=== PATIENT | male | born 1935 | race Caucasian/White ===

== ENCOUNTER 2022-04-06 05:18 | Inpatient (IN) | payer MEDICARE, MEDICAID ==
[~2022-04-06] VITALS: Ht 177.8 cm; Wt 81.2 kg
[2022-04-06 05:21] VITALS: BP_SYST 132
--- NOTE | 2022-04-06 05:28 | NUR ---
SON, JOSÉ LUIS MARES [phone] SPOKE TO SON, AND SON IS GETTING ON AIRPLANE COMING TO [place] FROM [place] AT 0600. CAN REACH HIM PRIOR TO THAT OR AFTER 1430 THIS AFTERNOON. TRIPLE BYPASS ON PATIENT WAS 16 YEARS AGO. PATIENT HAS [employer] [employer] PER SON.
--- NOTE | 2022-04-06 05:38 | NUR ---
Placed in room 6 . Placed on satellite project site monitor, blood pressure machine and pulse oximeter. To gown for exam. Side rails up.
--- NOTE | 2022-04-06 05:38 | NUR ---
Pt BIBA C/O chest pain and back pain EKG done Pt resting comfortably at bed VSS Verbally responsive Able to make needs known Will continue to monitor
--- NOTE | 2022-04-06 05:41 | NUR ---
Aspirin given in route 324mg
--- NOTE | 2022-04-06 05:48 | NUR ---
Dr. Lau at bedside with patient for evaluation.
[2022-04-06] MEDS ORDERED: ASPIRIN 325 MG TABLET (ECOTRIN) PO ONE (06:15)
--- NOTE | 2022-04-06 06:15 | NUR ---
Per Dr. Lau, DC aspirin as he received a dose en route
[2022-04-06] MEDS ORDERED: OXYCODONE/ACETAMINOPHEN *10*mg/325 mg TABLET PO ONE (06:30)
[2022-04-06 06:39] LABS: BASOPHILS % (AUTO) 0.5 % (0.0-2.0); EOSINOPHILS # (AUTO) 0.1 K/uL (0.0-0.4); EOSINOPHILS % (AUTO) 0.9 % (0.0-4.0); HEMATOCRIT 30.5 % (36-54); HEMOGLOBIN 10.4 g/dL (14.0-18.0); LYMPHOCYTES # (AUTO) 1.2 K/uL (1.0-5.5); LYMPHOCYTES % (AUTO) 15.2 % (20.5-51.5); MEAN CORPUSCULAR HEMOGLOBIN 31 pg (27-31); MEAN CORPUSCULAR HGB CONC 34 % (32-36); MEAN CORPUSCULAR VOLUME 92 fL (79.0-98.0); MONOCYTES # (AUTO) 0.6 K/uL (0.0-1.0); MONOCYTES % (AUTO) 7.7 % (1.7-9.3); NEUTROPHILS # (AUTO) 6.1 K/uL (1.8-7.7); NEUTROPHILS % (AUTO) 75.7 % (40.0-70.0); PLATELET COUNT (AUTO) 193 K/uL (130-430); RED BLOOD CELL COUNT(AUTO) 3.33 MIL/uL (4.2-6.2); RED CELL DISTRIBUTION WIDTH 15.5 % (9.0-15.0)
[2022-04-06 06:48] LABS: ANION GAP 3 (5-15); CALCIUM 7.5 mg/dL (8.4-11.0); CHLORIDE 107 mmol/L (98-107); CREATININE 0.77 mg/dL (0.55-1.30); GLUCOSE 100 mg/dL (70-99); POTASSIUM 4.1 mmol/L (3.5-5.1); SODIUM SERUM 139 mmol/L (136-145); UREA NITROGEN, BLOOD 16 mg/dL (8-21)
[2022-04-06 06:56] LABS: ALANINE AMINOTRANSFERASE 23 U/L (12-78); ALBUMIN 2.7 g/dL (3.4-4.8); ASPARTATE AMINOTRANSFERASE 20 U/L (10-37); TOTAL BILIRUBIN 0.5 mg/dL (0.0-1.0)
--- NOTE | 2022-04-06 07:08 | NUR ---
Gave report to Flaquita
--- NOTE | 2022-04-06 07:08 | NUR ---
REPORT RECEIVED FROM ANNAMARIE JERONIMO FOR CONTINUING CARE
--- NOTE | 2022-04-06 08:00 | NUR ---
PT TURNED FOR COMFORT, REPORTS POSITIONAL PAIN TO LOWER BACK. STATES RELIEF WITH REPOSITION
--- NOTE | 2022-04-06 09:39 | NUR ---
COVID SWAB DONE AND SENT TO LAB
[2022-04-06] MEDS ORDERED: IBUPROFEN 800 MG TABLET PO ONE (10:45)
--- NOTE | 2022-04-06 11:00 | NUR ---
PT TURNED FOR COMFORT TO RIGHT SIDE. REPORTS RELIEF FROM DISCOMFORT
[2022-04-06] MEDS ORDERED: MORPHINE 2 MG/ML INJ. SYRINGE IVP PRN (12:45)
[2022-04-06] MEDS ORDERED: ONDANSETRON HCL 4 MG/2 ML VIAL IVP PRN (12:45)
[2022-04-06] MEDS ORDERED: HYDROcodone/ACETAMIN 5-325 MG TAB (NORCO/ VICODIN) PO PRN (12:45)
--- NOTE | 2022-04-06 13:14 | NUR ---
Admit bed requested Patient will be admitted to care of . Admitted to TELE unit. Diagnosis CHEST PAIN Inpatient (Yes or No) YES Observation (Yes or No) NO Orientation concerns or request close to nursing station (Yes or No) NO Covid Status NEGATIVE On vent or bipap NO Isolation requirements NO Needs a sitter NO From Home (Yes or if No enter name of facility) [facility] Requires Dialysis (Yes or No) NO Med Rec Completed (Yes of No) YES
[2022-04-06] MEDS ORDERED: ACET325T53 PO (13:20)
[2022-04-06] MEDS ORDERED: ASA81 PO (13:20)
[2022-04-06] MEDS ORDERED: POTA20PA30 PO (13:20)
[2022-04-06] MEDS ORDERED: CLOP75TA32 PO (13:20)
[2022-04-06] MEDS ORDERED: ISOS60TA71 PO (13:20)
[2022-04-06] MEDS ORDERED: ATEN-41 PO (13:20)
[2022-04-06] MEDS ORDERED: NITSL SL (13:20)
[2022-04-06] MEDS ORDERED: LIP40 PO (13:20)
[2022-04-06] MEDS ORDERED: LISI10TA29 PO (13:20)
[2022-04-06] MEDS ORDERED: POLY17PO4 PO (13:20)
--- NOTE | 2022-04-06 13:20 | NUR ---
Medication reconciliation completed with information provided by [facility]. Any prior medication reconciliation on file was reviewed and corrected.
[2022-04-06] MEDS ORDERED: NITROGLYCERIN 0.4 MG TAB.SUBL SL PRN (14:30)
[2022-04-06] MEDS ORDERED: POLYETHYLENE GLYCOL 3350, 17 GM/ POWD.PACK PO PRN (14:30)
--- NOTE | 2022-04-06 14:30 | NUR ---
Patient admitted to care of Dr. Doherty. Admitted to Tele unit. Will go to room 106A. Belongings list completed. Complete and up to date summary report printed. SBAR report given at bedside to ANNAMARIE Kendall with opportunity for questions.
--- NOTE | 2022-04-06 16:03 | NUR ---
CONSULTATION PAGED REASON FOR CONSULTATION:CHEST PAIN WAS CONSULT CALLED?Y -PERSON WHO WAS NOTIFIED:JESU CONSULTING PHYSICIAN:BUCK JASSO FORENSIC TOXICOLOGIST SPECIALTY:CARDIO FORENSIC TOXICOLOGIST PHONE NUMBER:[phone] REQUESTING PHYSICIAN:
[2022-04-06 16:18] VITALS: BP_SYST 105
[2022-04-06 19:40] VITALS: BP_SYST 142
--- NOTE | 2022-04-06 19:40 | NUR ---
ROUNDS; -Pt is a/ox2-3, awakes,laying in bed comfortably, CHICKALOON noted. Pt denies any chest pain,pain,sob,or any acute distress. IV site of LFA #20 patent no s/s any infiltration after flushed w/ NS. Bed alarmed, side rails x3,call light w/in reach. Discussed poc,all safety measures, not to get OOB w/out using call light for assistance, pt verbalized understanding and pt is able to use call light with good return demonstration. Cont to monitor pt.
--- NOTE | 2022-04-06 19:40 | NUR ---
CORRECTION-IT'S PM ASSESSMENT NOT ROUNDS;
[2022-04-06] MEDS: ACETAMINOPHEN 325 MG TABLET PO PRN (20:54)
--- NOTE | 2022-04-06 20:54 | NUR ---
NOTES PAIN MGMT -Pt is c/o sacrum pain 12/18,gave Tylenol po for pain mgmt. Will reassess pain level w/in an hour. Cont to monitor pt.
[2022-04-06] MEDS ORDERED: ATENOLOL 25 MG TABLET(TENORMIN) PO SCH (21:00)
[2022-04-06 21:08] LABS: CHOLESTEROL 134 mg/dL (<200); HDL CHOLESTEROL 44 mg/dL (>45); LDL CHOLESTEROL 81 mg/dL (<100); TRIGLYCERIDES 56 mg/dL (30-150)
--- NOTE | 2022-04-06 21:54 | NUR ---
ROUNDS; -Pt is laying in bed. Pt denies any pain or any acute distress. All safety measures in place. Bed alarmed. call light w/in reach. Cont to monitor pt.
[2022-04-07] VITALS (8 sets, daily range): BP systolic 110–138
--- NOTE | 2022-04-07 01:19 | NUR ---
ROUNDS; -Pt is asleep. No s/s any pain or any acute distress noted. All safety measures in place. Bed alarmed. call light w/in reach. Cont to monitor pt.
--- NOTE | 2022-04-07 03:20 | NUR ---
ROUNDS; -Pt is still asleep. No s/s any pain or any acute distress noted. All safety measures in place. Bed alarmed. call light w/in reach. Cont to monitor p
[2022-04-07 06:20] LABS: BASOPHILS % (AUTO) 0.3 % (0.0-2.0); EOSINOPHILS # (AUTO) 0.1 K/uL (0.0-0.4); EOSINOPHILS % (AUTO) 0.9 % (0.0-4.0); HEMATOCRIT 32.6 % (36-54); HEMOGLOBIN 11.2 g/dL (14.0-18.0); LYMPHOCYTES # (AUTO) 1.2 K/uL (1.0-5.5); MEAN CORPUSCULAR HEMOGLOBIN 31 pg (27-31); MEAN CORPUSCULAR HGB CONC 34 % (32-36); MEAN CORPUSCULAR VOLUME 91 fL (79.0-98.0); MONOCYTES # (AUTO) 0.6 K/uL (0.0-1.0); MONOCYTES % (AUTO) 7.2 % (1.7-9.3); NEUTROPHILS # (AUTO) 6.2 K/uL (1.8-7.7); NEUTROPHILS % (AUTO) 76.6 % (40.0-70.0); PLATELET COUNT (AUTO) 195 K/uL (130-430); RED BLOOD CELL COUNT(AUTO) 3.59 MIL/uL (4.2-6.2); RED CELL DISTRIBUTION WIDTH 15.4 % (9.0-15.0); WHITE BLOOD COUNT (AUTO) 8.1 K/uL (4.8-10.8)
[2022-04-07 06:32] LABS: ANION GAP 6 (5-15); CALCIUM 8.3 mg/dL (8.4-11.0); CHLORIDE 103 mmol/L (98-107); CREATININE 0.67 mg/dL (0.55-1.30); GLUCOSE 100 mg/dL (70-99); PHOSPHORUS 3.5 mg/dL (2.7-4.5); POTASSIUM 3.8 mmol/L (3.5-5.1); SODIUM SERUM 136 mmol/L (136-145); UREA NITROGEN, BLOOD 16 mg/dL (8-21)
--- NOTE | 2022-04-07 06:39 | NUR ---
CLOSING NOTES; -Pt is laying in bed comfortably, MODOC noted. No s/s any chest pain,pain,sob,or any acute distress noted. IV site of LFA #20 patent no s/s any infiltration after flushed w/ NS. Bed alarmed, side rails x3,call light w/in reach. Pt's condition stable. Will endorse to next nurse to cont care.
--- NOTE | 2022-04-07 08:00 | NUR ---
RECEIVED PATIENT IN BED RESTING COMFORTABLY. AAOX4, PRESENTS CALM AND COOPERATIVE, ABLE TO TO EXPRESS NEEDS. PATIENT SHOWS NO SIGNS OF PAIN OR DISCOMFORT. RESPIRATIONS ARE NON LABORED. SKIN IS WARM AND DRY TO TOUCH. IV ACCESS IS PATENT, DRY, AND SECURE, NO SIGNS OF REDNESS OR SWELLING OBSERVED. BED IS LOCKED AND LOWEST POSITION , CALL LIGHT WITHIN REACH. NURSE WILL MONITOR AND CONTINUE WITH CARE.
[2022-04-07] MEDS ORDERED: ATORVASTATIN 20 MG TABLET PO SCH (09:00)
[2022-04-07] MEDS ORDERED: ISOSORBIDE MONONITRATE 30 MG TAB.ER.24H PO SCH (09:00)
[2022-04-07] MEDS ORDERED: POTASSIUM CHLORIDE 20 MEQ/PKT PACKET PO SCH (09:00)
[2022-04-07] MEDS ORDERED: ASPIRIN 81 MG TAB.CHEW PO SCH ×2 (09:00)
[2022-04-07] MEDS ORDERED: LISINOPRIL 10 MG TABLET (PRINIVIL) PO SCH (09:00)
[2022-04-07] MEDS ORDERED: CLOPIDOGREL BISULFATE 75 MG TABLET PO SCH (09:00)
[2022-04-07] MEDS: ACETAMINOPHEN 325 MG TABLET PO PRN (10:52)
--- NOTE | 2022-04-07 13:37 | NUR ---
SPOKE WITH SON. PATIENT WILL BE DISCHARGED AT 1730 BY TRANSPORTATION WITH [facility]. SON WILL ARRANGE INFORMATION DEVELOPER.
--- NOTE | 2022-04-07 14:06 | NUR ---
INFORMED ANNAMARIE CANCHOLA THAT PT IS OFF MONITOR. INFORMED RN TWICE.
--- NOTE | 2022-04-22 14:21 | NUR ---
Can Inspector MINE CAPTAIN made a Post Discharge Follow-Up Phone Call to former pt. Lolita who resides at [facility], an assisted living. Caryn Bolden stated he is at the Memory Care part of the facility and that [facility] is sending a PT who comes to check on Lolita and that he did have both follow up apts. with his PCP and Cardioligist.
== END 2022-04-07 18:05 | disposition home or self-care (01) | DRG 313 ==
LOC: SED 05:18 → STU 12:44
PROVIDERS: ADMIT Student in an Organized Health Care Education/Training Program; ATTEND Student in an Organized Health Care Education/Training Program
DX: R07.89 Other chest pain (principal); E44.0 Moderate protein-calorie malnutrition; I10 Essential (primary) hypertension; G89.29 Other chronic pain; I25.10 Atherosclerotic heart disease of native coronary artery without angina pectoris; M19.90 Unspecified osteoarthritis, unspecified site; Z20.822 Contact with and (suspected) exposure to COVID-19; E78.5 Hyperlipidemia, unspecified; E88.09 Other disorders of plasma-protein metabolism, not elsewhere classified; D64.9 Anemia, unspecified; F03.90 Unspecified dementia, unspecified severity, without behavioral disturbance, psychotic disturbance, mood disturbance, and anxiety; Z95.1 Presence of aortocoronary bypass graft
CPT/HCPCS: 36415; 71045; 80048; 80053; 80061; 83735; 83880; 84100; 84484; 85025; 86886; 86900; 86901; 93005; 93306; 99285; G0378

== ENCOUNTER 2022-05-31 23:04 | Inpatient (IN) | payer MEDICARE, MEDICAID ==
[~2022-05-31] VITALS: Ht 170.2 cm; Wt 84.4 kg
[~2022-05-31 23:04] MED LIST: ACET325T53 PO; ASA81 PO; ATEN-41 PO; CLOP75TA32 PO; ISOS60TA71 PO; LIP40 PO; LISI10TA29 PO; NITSL SL; POLY17PO4 PO; POTA20PA30 PO
[2022-05-31 23:09] VITALS: BP_SYST 135
--- NOTE | 2022-05-31 23:15 | NUR ---
RECEIVED PT BIB BLS TRANSPORT C/O RECTAL BLEED. PT DENIES ABD PAIN AT THIS TIME. DENIES N/V/D. PMh:HTN PT AAOX4, NO SOB NOTED AND NOT IN ANY DISTRESS AT THIS TIME.
--- NOTE | 2022-05-31 23:21 | NUR ---
Patient to ER bed 03 to gown for evaluation. Side rails up. Report given to ANNAMARIE PRETTY
[2022-06-01 00:25] LABS: BASOPHILS % (AUTO) 0.4 % (0.0-2.0); EOSINOPHILS # (AUTO) 0.1 K/uL (0.0-0.4); EOSINOPHILS % (AUTO) 0.6 % (0.0-4.0); HEMATOCRIT 27.3 % (36-54); HEMOGLOBIN 9.2 g/dL (14.0-18.0); LYMPHOCYTES # (AUTO) 1.2 K/uL (1.0-5.5); LYMPHOCYTES % (AUTO) 13.1 % (20.5-51.5); MEAN CORPUSCULAR HEMOGLOBIN 29 pg (27-31); MEAN CORPUSCULAR HGB CONC 34 % (32-36); MEAN CORPUSCULAR VOLUME 85 fL (79.0-98.0); MONOCYTES # (AUTO) 0.7 K/uL (0.0-1.0); MONOCYTES % (AUTO) 8.5 % (1.7-9.3); NEUTROPHILS # (AUTO) 6.8 K/uL (1.8-7.7); NEUTROPHILS % (AUTO) 77.4 % (40.0-70.0); PLATELET COUNT (AUTO) 307 K/uL (130-430); RED BLOOD CELL COUNT(AUTO) 3.22 MIL/uL (4.2-6.2); RED CELL DISTRIBUTION WIDTH 14.6 % (9.0-15.0); WHITE BLOOD COUNT (AUTO) 8.8 K/uL (4.8-10.8)
[2022-06-01 00:46] LABS: ANION GAP 5 (5-15); CALCIUM 8.6 mg/dL (8.4-11.0); CHLORIDE 103 mmol/L (98-107); CREATININE 0.87 mg/dL (0.55-1.30); GLUCOSE 109 mg/dL (70-99); POTASSIUM 4.3 mmol/L (3.5-5.1); SODIUM SERUM 139 mmol/L (136-145); UREA NITROGEN, BLOOD 17 mg/dL (8-21)
[2022-06-01 00:52] LABS: INR 1.2 (0.80-1.20); PROTHROMBIN TIME 12.3 SECS (9.5-12.5)
[2022-06-01 01:03] LABS: ALANINE AMINOTRANSFERASE 20 U/L (12-78); ASPARTATE AMINOTRANSFERASE 16 U/L (10-37); TOTAL BILIRUBIN 0.4 mg/dL (0.0-1.0)
--- NOTE | 2022-06-01 03:19 | NUR ---
PT HAD BLOOD CLOTS IN STOOL. ERMD NOTIFIED
[2022-06-01] MEDS ORDERED: PANTOPRAZOLE SODIUM 40 MG in NS 50 ML IV SCH (03:45)
[2022-06-01] MEDS ORDERED: PANTOPRAZOLE SODIUM 80 MG in NS 100 ML IV ONE (03:45)
[2022-06-01] MEDS ORDERED: NACL 0.9% 1,000 ML IV SCH (03:45)
[2022-06-01] MEDS ORDERED: PANTOPRAZOLE SODIUM 40 MG/VIAL (PROTONIX) ONE ×6 (03:56→13:18)
[2022-06-01 04:00] LABS: HEMATOCRIT 25.1 % (36-54); HEMOGLOBIN 8.7 g/dL (14.0-18.0)
--- NOTE | 2022-06-01 04:50 | NUR ---
PT ARRIVED ON UNIT PT WAS TRANSPORTED BY [facility] FROM ED. PT MOVED TO BED BY NURSES. NO APPARENT DISTRESS NOTED AT THIS TIME. IV FLUIDS RESUMED ORDERED. BED IS IN LOWEST POSITION WITH FALL AND SAFETY PRECAUTIONS IN PLACE. CALL LIGHT WITHIN REACH AND PT EDUCATED ON HOW TO USE IT
[2022-06-01 04:56] VITALS: BP_SYST 155
--- NOTE | 2022-06-01 05:06 | NUR ---
CONSULTATION PAGED/CALLED Reason for Consultation: gi bleed Person Who was Notified: DION Consulting Physician: DR. WONG Continuous Conveyor Screen Drier Specialty: GI Ordering Physician: DR. NUNEZ
--- NOTE | 2022-06-01 07:48 | NUR ---
SPOKE WITH GI DR WONG UPDATED DR ON PTS CONDITION. IS ON HIS WAY IN TO SEE PT
[2022-06-01 08:00] VITALS: BP_SYST 138
[2022-06-01 08:12] LABS: TOTAL IRON BIND. CAPACITY 276 ug/dL (250-450)
[2022-06-01] MEDS: D5LR 1,000 ML IV SCH ×2 (09:22→18:22)
[2022-06-01] MEDS: LISINOPRIL 10 MG TABLET (PRINIVIL) PO SCH (09:23)
[2022-06-01] MEDS: ISOSORBIDE MONONITRATE 30 MG TAB.ER.24H PO SCH (09:23)
--- NOTE | 2022-06-01 09:27 | NUR ---
NOTIFIED OF CONSULT DR. MILLER (DR. DENISSE WONG GRINDER OPERATOR EXTERNAL TOOL) REQUESTING PHY: REASON FOR CONSULT: GI BLEED DIALED: [phone] SPOKE TO: YEE
[2022-06-01] MEDS: ATORVASTATIN 20 MG TABLET PO SCH (09:31)
[2022-06-01] MEDS: PANTOPRAZOLE SODIUM 40 MG in NS 50 ML IV SCH ×4 (09:33→23:17)
[2022-06-01 10:47] LABS: BASOPHILS % (AUTO) 0.5 % (0.0-2.0); EOSINOPHILS # (AUTO) 0.1 K/uL (0.0-0.4); EOSINOPHILS % (AUTO) 0.6 % (0.0-4.0); HEMATOCRIT 25.1 % (36-54); HEMOGLOBIN 8.4 g/dL (14.0-18.0); LYMPHOCYTES # (AUTO) 1.2 K/uL (1.0-5.5); LYMPHOCYTES % (AUTO) 13.2 % (20.5-51.5); MEAN CORPUSCULAR HEMOGLOBIN 29 pg (27-31); MEAN CORPUSCULAR HGB CONC 33 % (32-36); MEAN CORPUSCULAR VOLUME 86 fL (79.0-98.0); MONOCYTES # (AUTO) 0.6 K/uL (0.0-1.0); MONOCYTES % (AUTO) 6.9 % (1.7-9.3); NEUTROPHILS % (AUTO) 78.8 % (40.0-70.0); PLATELET COUNT (AUTO) 283 K/uL (130-430); RED BLOOD CELL COUNT(AUTO) 2.93 MIL/uL (4.2-6.2); RED CELL DISTRIBUTION WIDTH 14.7 % (9.0-15.0); WHITE BLOOD COUNT (AUTO) 8.9 K/uL (4.8-10.8)
[2022-06-01 11:41] VITALS: BP_SYST 153
--- NOTE | 2022-06-01 12:15 | NUR ---
DISCHARGE PLANNING [facility] [employer]. Faxed updated pt info to [facility] [employer] along with my direct line, Dr Chris chaidez ph, direct nsg station number. Spoke with pt at bedside & states prefers to stay here does not want to transfer to [facility].
[2022-06-01 16:24] VITALS: BP_SYST 140
[2022-06-01] MEDS: SOD FERRIC GLUC COMPLEX/SUC 125 MG in NS 100 ML IV SCH (17:00)
[2022-06-01] MEDS ORDERED: BISACODYL 5 MG TABLET.DR (DULCOLAX) PO ONE (18:00)
[2022-06-01] MEDS ORDERED: GOLYTELY / COLYTE SOLUTION 4 LITERS PO ONE (18:00)
[2022-06-01 19:06] LABS: HEMOGLOBIN 6.9 g/dL (14.0-18.0)
[2022-06-01] MEDS: ATENOLOL 25 MG TABLET(TENORMIN) PO SCH (22:00)
--- NOTE | 2022-06-01 23:22 | NUR ---
Per lab , the patient blood is B+ and his blood type is not available, phone call placed to dr. Rishi PINTO MD, to confirm the availability to transfer Blood unit O+ instead. Dr. Marie approved transferring Blood unit Type O+ instead as it is universal donor.
[2022-06-02] VITALS (7 sets, daily range): BP systolic 117–132
--- NOTE | 2022-06-02 02:00 | NUR ---
one unit of RBCS transfused at 0012 06/02/2022
[2022-06-02] MEDS: PANTOPRAZOLE SODIUM 40 MG in NS 50 ML IV SCH ×5 (03:15→23:19)
[2022-06-02] MEDS: D5LR 1,000 ML IV SCH ×3 (03:15→23:20)
[2022-06-02 06:56] LABS: BASOPHILS # (AUTO) 0.1 K/uL (0.0-0.2); BASOPHILS % (AUTO) 0.6 % (0.0-2.0); EOSINOPHILS % (AUTO) 0.3 % (0.0-4.0); HEMATOCRIT 23.9 % (36-54); HEMOGLOBIN 8.3 g/dL (14.0-18.0); LYMPHOCYTES # (AUTO) 0.8 K/uL (1.0-5.5); LYMPHOCYTES % (AUTO) 8.3 % (20.5-51.5); MEAN CORPUSCULAR HEMOGLOBIN 30 pg (27-31); MEAN CORPUSCULAR HGB CONC 35 % (32-36); MEAN CORPUSCULAR VOLUME 85 fL (79.0-98.0); MONOCYTES # (AUTO) 0.7 K/uL (0.0-1.0); MONOCYTES % (AUTO) 7.4 % (1.7-9.3); NEUTROPHILS # (AUTO) 8.1 K/uL (1.8-7.7); NEUTROPHILS % (AUTO) 83.4 % (40.0-70.0); PLATELET COUNT (AUTO) 251 K/uL (130-430); RETICULOCYTE COUNT 2.3 % (0.5-1.5); WHITE BLOOD COUNT (AUTO) 9.7 K/uL (4.8-10.8)
[2022-06-02] MEDS ORDERED: fentaNYL CITRATE/PF 100 MCG/2 ML AMP ONE (07:04)
[2022-06-02] MEDS ORDERED: MIDAZOLAM HCL 5 MG/5 ML VIAL ONE (07:04)
[2022-06-02 07:22] LABS: ALANINE AMINOTRANSFERASE 20 U/L (12-78); ALBUMIN 2.8 g/dL (3.4-4.8); ANION GAP 8 (5-15); ASPARTATE AMINOTRANSFERASE 18 U/L (10-37); CALCIUM 8.2 mg/dL (8.4-11.0); CHLORIDE 105 mmol/L (98-107); CREATININE 0.81 mg/dL (0.55-1.30); GLUCOSE 104 mg/dL (70-99); POTASSIUM 3.5 mmol/L (3.5-5.1); SODIUM SERUM 140 mmol/L (136-145); TOTAL BILIRUBIN 0.4 mg/dL (0.0-1.0); UREA NITROGEN, BLOOD 11 mg/dL (8-21)
--- NOTE | 2022-06-02 07:30 | NUR ---
Report received from overnight babysitter RN for continuity of care. Patient in stable condition. No imminent distress noted at this time. Patient repositioned in bed.
[2022-06-02] MEDS: ISOSORBIDE MONONITRATE 30 MG TAB.ER.24H PO SCH (09:00)
[2022-06-02] MEDS: LISINOPRIL 10 MG TABLET (PRINIVIL) PO SCH (09:00)
[2022-06-02] MEDS: ATORVASTATIN 20 MG TABLET PO SCH (09:00)
--- NOTE | 2022-06-02 09:22 | NUR ---
Patient refusing tap water enema. Patient refusing to drink golytely. Dr. Perez made aware.
--- NOTE | 2022-06-02 09:23 | NUR ---
Patient's son made aware of patient refusing golytely and tap water enema
[2022-06-02] MEDS ORDERED: BENZOCAINE 20% 0.5mL UD SPRAY MM ONE (11:34)
--- NOTE | 2022-06-02 12:42 | NUR ---
Patient came back from GI procedure EGD and colonoscopy. Federica Jc RN gave report for continuity of care. Patient sleepy. Vital signs stable. No distress noted. Respiration even and unlabored.
--- NOTE | 2022-06-02 12:53 | NUR ---
Patient's son, Kalin, made aware of situation of patient arriving back to room. Vitals stable. No distress noted.
[2022-06-02 13:01] LABS: BASOPHILS % (AUTO) 0.4 % (0.0-2.0); EOSINOPHILS % (AUTO) 0.3 % (0.0-4.0); HEMATOCRIT 24.5 % (36-54); HEMOGLOBIN 8.4 g/dL (14.0-18.0); LYMPHOCYTES # (AUTO) 0.8 K/uL (1.0-5.5); LYMPHOCYTES % (AUTO) 8.1 % (20.5-51.5); MEAN CORPUSCULAR HEMOGLOBIN 29 pg (27-31); MEAN CORPUSCULAR HGB CONC 34 % (32-36); MEAN CORPUSCULAR VOLUME 86 fL (79.0-98.0); MONOCYTES # (AUTO) 0.9 K/uL (0.0-1.0); MONOCYTES % (AUTO) 8.9 % (1.7-9.3); NEUTROPHILS # (AUTO) 8.3 K/uL (1.8-7.7); NEUTROPHILS % (AUTO) 82.3 % (40.0-70.0); PLATELET COUNT (AUTO) 257 K/uL (130-430); RED BLOOD CELL COUNT(AUTO) 2.85 MIL/uL (4.2-6.2)
[2022-06-02] MEDS: SOD FERRIC GLUC COMPLEX/SUC 125 MG in NS 100 ML IV SCH (15:46)
[2022-06-02] MEDS: ACETAMINOPHEN 325 MG TABLET PO PRN ×3 (16:36→22:08)
--- NOTE | 2022-06-02 16:58 | NUR ---
INFORMED TECHNOLOGY DEVELOPMENT INTERN ANDY THAT THE PATIENT HAS BEEN OFF THE TELE MONITOR FOR AN HOUR
--- NOTE | 2022-06-02 20:07 | NUR ---
Report given to shift production associate RN for continuity of care. Patient stable condition. No distress noted.
[2022-06-02 21:39] LABS: BASOPHILS # (AUTO) 0.1 K/uL (0.0-0.2); BASOPHILS % (AUTO) 0.6 % (0.0-2.0); EOSINOPHILS % (AUTO) 0.2 % (0.0-4.0); HEMATOCRIT 25.3 % (36-54); HEMOGLOBIN 8.3 g/dL (14.0-18.0); LYMPHOCYTES # (AUTO) 1.9 K/uL (1.0-5.5); MEAN CORPUSCULAR HEMOGLOBIN 29 pg (27-31); MEAN CORPUSCULAR HGB CONC 33 % (32-36); MEAN CORPUSCULAR VOLUME 87 fL (79.0-98.0); MONOCYTES # (AUTO) 1.2 K/uL (0.0-1.0); MONOCYTES % (AUTO) 9.3 % (1.7-9.3); NEUTROPHILS # (AUTO) 9.6 K/uL (1.8-7.7); NEUTROPHILS % (AUTO) 74.9 % (40.0-70.0); PLATELET COUNT (AUTO) 296 K/uL (130-430); RED BLOOD CELL COUNT(AUTO) 2.91 MIL/uL (4.2-6.2); RED CELL DISTRIBUTION WIDTH 15.2 % (9.0-15.0); WHITE BLOOD COUNT (AUTO) 12.8 K/uL (4.8-10.8)
[2022-06-02] MEDS: ATENOLOL 25 MG TABLET(TENORMIN) PO SCH (22:09)
--- NOTE | 2022-06-02 23:13 | NUR ---
PAGED DR. NUNEZ SPOKE TO MARI
[2022-06-02] MEDS ORDERED: QUEtiapine FUMARATE 25 MG TABLET PO ONE (23:30)
[2022-06-02] MEDS ORDERED: DIPHENHYDRAMINE INJ 50 MG/ML VIAL IVP ONE (23:30)
[2022-06-03 00:44] VITALS: BP_SYST 106
[2022-06-03] MEDS: PANTOPRAZOLE SODIUM 40 MG in NS 50 ML IV SCH ×2 (04:41→08:23)
[2022-06-03 04:48] VITALS: BP_SYST 110
[2022-06-03 06:43] LABS: BASOPHILS % (AUTO) 0.2 % (0.0-2.0); EOSINOPHILS % (AUTO) 0.1 % (0.0-4.0); HEMATOCRIT 22.8 % (36-54); HEMOGLOBIN 7.9 g/dL (14.0-18.0); LYMPHOCYTES # (AUTO) 1.1 K/uL (1.0-5.5); LYMPHOCYTES % (AUTO) 10.4 % (20.5-51.5); MEAN CORPUSCULAR HEMOGLOBIN 30 pg (27-31); MEAN CORPUSCULAR HGB CONC 35 % (32-36); MEAN CORPUSCULAR VOLUME 86 fL (79.0-98.0); MONOCYTES # (AUTO) 0.9 K/uL (0.0-1.0); MONOCYTES % (AUTO) 8.1 % (1.7-9.3); NEUTROPHILS # (AUTO) 8.9 K/uL (1.8-7.7); NEUTROPHILS % (AUTO) 81.2 % (40.0-70.0); PLATELET COUNT (AUTO) 255 K/uL (130-430); RED BLOOD CELL COUNT(AUTO) 2.67 MIL/uL (4.2-6.2); RED CELL DISTRIBUTION WIDTH 14.8 % (9.0-15.0)
[2022-06-03 07:07] LABS: ALANINE AMINOTRANSFERASE 19 U/L (12-78); ALBUMIN 2.7 g/dL (3.4-4.8); ANION GAP 8 (5-15); ASPARTATE AMINOTRANSFERASE 23 U/L (10-37); CALCIUM 8.4 mg/dL (8.4-11.0); CHLORIDE 105 mmol/L (98-107); CREATININE 0.98 mg/dL (0.55-1.30); GLUCOSE 116 mg/dL (70-99); POTASSIUM 3.8 mmol/L (3.5-5.1); SODIUM SERUM 139 mmol/L (136-145); TOTAL BILIRUBIN 0.6 mg/dL (0.0-1.0); UREA NITROGEN, BLOOD 10 mg/dL (8-21)
--- NOTE | 2022-06-03 08:00 | NUR ---
Initial notes Sleepy but responsive, wants to eat later. IVF and protonix drip infusing well. On O2 2l. will monitor.
[2022-06-03 08:12] VITALS: BP_SYST 118
[2022-06-03] MEDS: ATORVASTATIN 20 MG TABLET PO SCH (08:23)
[2022-06-03] MEDS: ISOSORBIDE MONONITRATE 30 MG TAB.ER.24H PO SCH (08:24)
[2022-06-03] MEDS: LISINOPRIL 10 MG TABLET (PRINIVIL) PO SCH (08:24)
[2022-06-03] MEDS: D5LR 1,000 ML IV SCH ×2 (09:15→21:01)
--- NOTE | 2022-06-03 09:20 | NUR ---
Notes Feed patient, eat alittle bit and drink some of his ensure. Denies any pain or shortness of breath.
--- NOTE | 2022-06-03 11:00 | NUR ---
notes Pt still sleepy but arousable, o2 sat is 100% in 2L. Dr. Perez aware. patient was given seroquel and benadryl last night.
[2022-06-03 12:50] VITALS: BP_SYST 115
[2022-06-03] MEDS: SOD FERRIC GLUC COMPLEX/SUC 125 MG in NS 100 ML IV SCH (16:00)
--- NOTE | 2022-06-03 16:25 | NUR ---
BLOOD TRANSFUSION Blood transfusion started, Patient awake now, educate on blood transfusion reaction.
[2022-06-03 16:56] VITALS: BP_SYST 117
[2022-06-03] MEDS ORDERED: EPOETIN ALFA-EPBX 4,000 UNITS/ML VIAL SUBCUT ONE (17:00)
[2022-06-03] MEDS ORDERED: QUEtiapine FUMARATE 25 MG TABLET PO SCH (18:00)
--- NOTE | 2022-06-03 18:51 | NUR ---
closing notes Awake, upset that he did not get solid food for tonight. blood transfusion still ongoing. will endorse Addendum: 06/03/22 at 1857 by Ellie Lozada RN feed patient and tolerated full liquid so far.
[2022-06-03 20:00] VITALS: BP_SYST 125
--- NOTE | 2022-06-03 20:39 | NUR ---
BT complete BT is complete, VSS, afebrile. He denies symptoms of reaction.
[2022-06-03] MEDS: ATENOLOL 25 MG TABLET(TENORMIN) PO SCH (20:56)
[2022-06-03] MEDS: MULTIVITAMINS TAB 1 TABLET PO SCH (20:56)
[2022-06-03] MEDS: ACETAMINOPHEN 325 MG TABLET PO PRN (20:58)
[2022-06-04 00:28] VITALS: BP_SYST 120
--- NOTE | 2022-06-04 01:14 | NUR ---
Patient care Patient is incontinent. He was not able to use urinal and linen is wet. Provided w/pericare, clean linen and pad. Applied barrier cream to buttocks.
--- NOTE | 2022-06-04 04:20 | NUR ---
Patient care Patient is incontinent and linen is wet. Provided w/pericare, clean linen and pad. Applied barrier cream to buttocks.
[2022-06-04] MEDS: ACETAMINOPHEN 325 MG TABLET PO PRN ×2 (06:12→11:32)
[2022-06-04 06:38] LABS: BASOPHILS % (AUTO) 0.4 % (0.0-2.0); EOSINOPHILS # (AUTO) 0.1 K/uL (0.0-0.4); EOSINOPHILS % (AUTO) 0.8 % (0.0-4.0); HEMATOCRIT 27.5 % (36-54); HEMOGLOBIN 9.4 g/dL (14.0-18.0); LYMPHOCYTES % (AUTO) 10.4 % (20.5-51.5); MEAN CORPUSCULAR HEMOGLOBIN 30 pg (27-31); MEAN CORPUSCULAR HGB CONC 34 % (32-36); MONOCYTES # (AUTO) 0.9 K/uL (0.0-1.0); MONOCYTES % (AUTO) 9.1 % (1.7-9.3); NEUTROPHILS # (AUTO) 7.7 K/uL (1.8-7.7); NEUTROPHILS % (AUTO) 79.3 % (40.0-70.0); PLATELET COUNT (AUTO) 249 K/uL (130-430); RED BLOOD CELL COUNT(AUTO) 3.12 MIL/uL (4.2-6.2); RED CELL DISTRIBUTION WIDTH 15.9 % (9.0-15.0); WHITE BLOOD COUNT (AUTO) 9.7 K/uL (4.8-10.8)
[2022-06-04 06:47] LABS: ANION GAP 6 (5-15); CALCIUM 8.5 mg/dL (8.4-11.0); CHLORIDE 105 mmol/L (98-107); GLUCOSE 105 mg/dL (70-99); POTASSIUM 3.7 mmol/L (3.5-5.1); SODIUM SERUM 139 mmol/L (136-145); UREA NITROGEN, BLOOD 10 mg/dL (8-21)
[2022-06-04 07:54] VITALS: BP_SYST 111
--- NOTE | 2022-06-04 07:56 | NUR ---
Opening note Patient is resting in bed,no distress. Non labored breathing on room air. Denies pain. IVF infusing via IV to RAC 20 Gauge. Bed is locked in lowest position, side rails up and call light w/in reach. will continue to monitor.
[2022-06-04 08:31] LABS: MEAN CORPUSCULAR VOLUME 88 fL (79.0-98.0)
[2022-06-04] MEDS: LISINOPRIL 10 MG TABLET (PRINIVIL) PO SCH (08:45)
[2022-06-04] MEDS: ISOSORBIDE MONONITRATE 30 MG TAB.ER.24H PO SCH (08:45)
[2022-06-04] MEDS: ATORVASTATIN 20 MG TABLET PO SCH (08:46)
[2022-06-04] MEDS: MULTIVITAMINS TAB 1 TABLET PO SCH (08:46)
[2022-06-04] MEDS ORDERED: MULT-1117 PO (11:41)
[2022-06-04] MEDS ORDERED: DOCU250C71 PO (11:41)
--- NOTE | 2022-06-04 11:53 | NUR ---
PCG Call Spoke with patient's son Kalin and informed him that he is good to be discharged per MD Perez. Son stated that he will make the transportation arrangements with his assisted living to pick him up. He will be calling us with a time frame.
[2022-06-04] MEDS ORDERED: FAMO20TA8 PO (11:54)
[2022-06-04 12:10] VITALS: BP_SYST 138
--- NOTE | 2022-06-04 12:10 | NUR ---
Patient rounds Patient is resting in bed,no distress. Non labored breathing on room air. Denies pain. IVF infusing via IV to RAC 20 Gauge. Took pictures of bilateral forearm skin tears for discharge preparation. Bed is locked in lowest position, side rails up and call light w/in reach. Will continue to monitor.
[2022-06-04 12:48] VITALS: BP_SYST 138
--- NOTE | 2022-06-04 13:00 | NUR ---
CM: faxed the dc order , for home health set up to [facility] . Per the / [facility] home health agency tel # [phone] will call pt for follow up care.
--- NOTE | 2022-06-04 13:07 | NUR ---
Son Call Spoke with son who stated that he is waiting on two transportation services to knot picker cloth his dad. Once he gets word and time he will let us know. Assisted living van will not be ready until tomorrow so he is calling other resources to assist.
--- NOTE | 2022-06-04 13:26 | NUR ---
SON CALL Son called back with an ETA of 1430 for transportation to take him to his assisted living facility. Patient was informed.
--- NOTE | 2022-06-04 14:31 | NUR ---
Discharge Patient was picked up by car service of Assisted Living where he lives. Patient stable with no SOB, No Pain or distress and Afebrile. Bilateral forearm skin tears were taken pictures of and documented in the chart. Patient also IV site to [facility] was removed. Patient was directed to contact his pcp and do a follow up for lab work. Patient signed discharge paper work and took copy with him.
--- NOTE | 2022-06-04 15:18 | NUR ---
Disposition code 06
== END 2022-06-04 14:31 | disposition home health service (06) | DRG 378 ==
LOC: SED 23:04 → STU 06-01 03:34
PROVIDERS: ADMIT Internal Medicine; ATTEND Internal Medicine
PROC: 0DBE8ZZ Excision of Large Intestine, Via Natural or Artificial Opening Endoscopic (ICD-10-PCS; 2022-06-02)
PROC: 0DB98ZX Excision of Duodenum, Via Natural or Artificial Opening Endoscopic, Diagnostic (ICD-10-PCS; principal; 2022-06-02 11:00)
PROC: 0DB78ZX Excision of Stomach, Pylorus, Via Natural or Artificial Opening Endoscopic, Diagnostic (ICD-10-PCS; 2022-06-02 11:00)
PROC: 30233N1 Transfusion of Nonautologous Red Blood Cells into Peripheral Vein, Percutaneous Approach (ICD-10-PCS; 2022-06-03)
DX: K57.31 Diverticulosis of large intestine without perforation or abscess with bleeding (principal); D62 Acute posthemorrhagic anemia; K63.5 Polyp of colon; K29.81 Duodenitis with bleeding; K44.9 Diaphragmatic hernia without obstruction or gangrene; I10 Essential (primary) hypertension; I25.10 Atherosclerotic heart disease of native coronary artery without angina pectoris; E78.5 Hyperlipidemia, unspecified; E61.1 Iron deficiency; Z20.822 Contact with and (suspected) exposure to COVID-19; Z79.82 Long term (current) use of aspirin; Z79.02 Long term (current) use of antithrombotics/antiplatelets; Z79.1 Long term (current) use of non-steroidal anti-inflammatories (NSAID); Z79.899 Other long term (current) drug therapy
CPT/HCPCS: 36415; 36430; 43239; 45385; 80048; 80053; 83051; 83540; 83550; 84484; 85014; 85018; 85025; 85044; 85610-TC; 85730-TC; 86886; 86900; 86901; 86920; 87081; 88305; 88312; 88313; 93005; 96374; 99285; C9113; G0378; J1200; J2250; J2916; J3010; P9021; Q5106

== ENCOUNTER 2022-06-21 12:01 | Emergency (ER) | payer MEDICARE, MEDICAID ==
[~2022-06-21] VITALS: Ht 177.8 cm; Wt 81.6 kg
[2022-06-21 12:01] VITALS: BP_SYST 91
[~2022-06-21 12:01] MED LIST changes: -CLOP75TA32 PO; +DOCU250C71 PO; +FAMO20TA8 PO; +MULT-1117 PO
--- NOTE | 2022-06-21 12:01 | NUR ---
BROUGHT IN BY [facility], PLACED IN BED #2 AND TRIAGED.REPORT GIVEN TO BRANDIN
--- NOTE | 2022-06-21 12:40 | NUR ---
SPOKE WITH PTS SON JOSÉ LUIS AND RECEIVED INFORMATION. PT WAS RECENTLY HERE 06/01--06/04 FOR GI BLEED, WAS SCOPED AND SENT HOME. THEN PT WAS TAKEN TO [facility] ON 06/15--06/19 FOR FLUID OVERLOAD. JOSÉ LUIS NOW STATES PT IS NOT EATING AND HAS LOW ENERGY. JOSÉ LUIS STATES WHILE IN [place], PT HAD LOW EJECTION FRACTION AT 40% AND ELEVATED TROPONIN
--- NOTE | 2022-06-21 12:50 | NUR ---
RECEIVED PT FROM ANNAMARIE TODD. PT HAS C/O GENERLIZED WEAKNESS, SON STATES HIS DAD HAS BEEN RECENTLY TREATED FOR GI BLEED AND THAT THIS WEAK HE WAS ADMITTED TO [facility] FOR FLUID OVERLOAD. PT PRESENTLY RESIDING AT [facility]. PT IS AAOX3. RESP E/U. ON R/A. NORMAL S1S2 NOTED. ABDOMEN SOFT, NONTENDER, NONDISTENDED. BOWEL SOUNDS ACTIVE X4 DENIES N/V/D/C. BUE AND BLE ECYMOSIS, DRYNESS, AND TRACE EDEMA. PT STATES HE HAS BACK PAIN, UNABLE TO STATE PAIN LEVEL. SIDERAILS UP X2.
[2022-06-21] MEDS ORDERED: DEXAMETHASONE SOD PHOSPHATE 10 MG/ML VIAL IVP ONE (13:30)
--- NOTE | 2022-06-21 13:43 | NUR ---
PT TAKEN FOR CT SCAN.
[2022-06-21] MEDS ORDERED: OXYCODONE/ACETAMINOPHEN 5-325 TABLET PO ONE (13:45)
--- NOTE | 2022-06-21 14:00 | NUR ---
LYNN OBTAINED AND TAKEN TO LAB
--- NOTE | 2022-06-21 14:43 | NUR ---
DR. QUINTEROS, SEA GIRT EPRP DOC, CALLED BACK TO SPEAK TO DR. GOODSON REGARDING PT STATUS.
--- NOTE | 2022-06-21 15:27 | NUR ---
PT REFUSED LAB DRAW. DR. GOODSON MADE AWARE.
--- NOTE | 2022-06-21 15:30 | NUR ---
DR GOODSON SPEAKING WITH PTS SON REGARDING TEST RESULTS.
[2022-06-21] MEDS ORDERED: LORazepam 2 MG/ML VIAL IM ONE (15:45)
--- NOTE | 2022-06-21 15:59 | NUR ---
pt refused ct scan.
--- NOTE | 2022-06-21 16:00 | NUR ---
ATIVAN 20MG IM IN THE LEFT DELTOID FOR ANXIETY.
--- NOTE | 2022-06-21 17:11 | NUR ---
IV CATH TO LW OBTAINED. LABS DRAWN.
--- NOTE | 2022-06-21 17:12 | NUR ---
PT REFUSED TO HAVE URINE OBTAINED. RISKS AND BENEFITS REVIEWED AND REINFORCED. PT STILL REFUSES.
[2022-06-21 17:30] LABS: BASOPHILS % (AUTO) 0.5 % (0.0-2.0); EOSINOPHILS % (AUTO) 0.6 % (0.0-4.0); HEMATOCRIT 35.3 % (36-54); LYMPHOCYTES # (AUTO) 0.9 K/uL (1.0-5.5); LYMPHOCYTES % (AUTO) 13.2 % (20.5-51.5); MEAN CORPUSCULAR VOLUME 87 fL (79.0-98.0); MONOCYTES # (AUTO) 0.6 K/uL (0.0-1.0); MONOCYTES % (AUTO) 8.1 % (1.7-9.3); NEUTROPHILS # (AUTO) 5.4 K/uL (1.8-7.7); NEUTROPHILS % (AUTO) 77.6 % (40.0-70.0); PLATELET COUNT (AUTO) 265 K/uL (130-430); RED BLOOD CELL COUNT(AUTO) 4.06 MIL/uL (4.2-6.2); RED CELL DISTRIBUTION WIDTH 18.5 % (9.0-15.0)
[2022-06-21 17:44] LABS: ANION GAP 6 (5-15); CHLORIDE 97 mmol/L (98-107); CREATININE 0.62 mg/dL (0.55-1.30); GLUCOSE 102 mg/dL (70-99); POTASSIUM 3.8 mmol/L (3.5-5.1); SODIUM SERUM 139 mmol/L (136-145); UREA NITROGEN, BLOOD 18 mg/dL (8-21)
[2022-06-21 18:00] LABS: ACETONE, SERUM TRACE (NEGATIVE)
[2022-06-21 18:03] LABS: ALANINE AMINOTRANSFERASE 201 U/L (12-78); ASPARTATE AMINOTRANSFERASE 84 U/L (10-37); FREE T4 (FREE THYROXINE) 1.4 ng/dl (0.8-1.5); THYROID STIMULATING HORMONE 3.06 uIu/mL (0.36-3.74); TOTAL BILIRUBIN 1.2 mg/dL (0.0-1.0)
--- NOTE | 2022-06-21 18:05 | NUR ---
TECH UNABLE TO OBTAIN CT SCAN, PT WILL NOT STAY ON TABLE. DR. GOODSON MADE AWARE.
--- NOTE | 2022-06-21 19:31 | NUR ---
ENDORSED ALL CARE TO ANNAMARIE PRETTY. ALL QUESTIONS AND CONCERNS ADDRESSED.
--- NOTE | 2022-06-21 19:45 | NUR ---
CRITICAL LABS DRAWN
--- NOTE | 2022-06-21 20:14 | NUR ---
Patient to be transferred to [facility]. PT is being transferred due to higher level of care. Receiving facility has accepting physician and available space. ER physician has signed transfer form. Patient or responsible libertarian has agreed to transfer and signed form. Patient belongings inventoried and will be sent with patient. Copy of nursing notes, lab reports, EKG, Physicians Orders and X-rays to be sent with patient. Report called to Mell at receiving facility. Receiving physician is Dr. Ray. Ambulance service has been called for transfer. ETA is 2030.
[2022-06-21 21:45] VITALS: BP_SYST 132
--- NOTE | 2022-06-22 12:42 | NUR ---
SPOKE WITH MARI DE LUNA AT [facility] EXPLAINED TO NEED FOR FOLLOWUP CT SCAN OF HEAD AND NECK.RN VERBALIZED UNDERSTANDING AND WELL INFORM ATTENDING MD.
== END 2022-06-21 21:45 | disposition short-term general hospital (02) ==
LOC: SED 12:01
DX: S32.512A Fracture of superior rim of left pubis, initial encounter for closed fracture (principal); S72.142A Displaced intertrochanteric fracture of left femur, initial encounter for closed fracture; Z79.899 Other long term (current) drug therapy; Z20.822 Contact with and (suspected) exposure to COVID-19; W19.XXXA Unspecified fall, initial encounter; Y93.89 Activity, other specified; Y92.89 Other specified places as the place of occurrence of the external cause; Y99.8 Other external cause status
CPT/HCPCS: 99285; 70450; 71045; 87426; 80053; 82009; 82550; 84439; 84443; 85025; 36415; 93005; 72131; 72192; 96372; 83605; 76376; J2060

== ENCOUNTER 2022-12-28 16:33 | Inpatient (IN) | payer MEDICARE, OTHER ==
[2022-12-28] VITALS (8 sets, daily range): BP systolic 115–160
[~2022-12-28] VITALS: Ht 177.8 cm; Wt 73.9 kg
--- NOTE | 2022-12-28 16:45 | NUR ---
RECEIVED PT FROM ANNAMARIE SALAS. DR. GOODSON AT BEDSIDE TO ASSESS PT. PT BIBA ACLS PT FROM [facility]. PT HAS ALOC FROM BASELINE, UNCOMPREHENSABLE, PERRL. PT ON NONREBREATHER AT 15LPM, UABLE TO OBTAIN 02 SAT, PT HAS 18G TO RFA FLUSHED AND NOTED INFILTRATED. MOTTLED SKIN HR IN THE 40S, DISTAL PULSES WEAK, BP 79/[address] LINES, PT PLACED ON MONITOR, SIDERAILS UP X2.
--- NOTE | 2022-12-28 17:19 | NUR ---
CXR OBTAINED, ABG COMPLETED. RESULTS GIVEN TO DR. GOODSON.
--- NOTE | 2022-12-28 17:20 | NUR ---
URINE, COVID, MRSA OBTAINED AND TAKEN TO LAB. AMMONIA OBTAINED BY MONEY ROOM TELLER.
--- NOTE | 2022-12-28 17:20 | NUR ---
DR. GOODSON MADE AWARE PT B/P 79/39, MAP 50. NNOS. SETTING UP FOR CENTRAL LINE AT THIS TIME.
[2022-12-28 17:25] LABS: BASOPHILS % (AUTO) 0.5 % (0.0-2.0); HEMATOCRIT 41.5 % (36-54); HEMOGLOBIN 13.5 g/dL (14.0-18.0); LYMPHOCYTES # (AUTO) 0.8 K/uL (1.0-5.5); LYMPHOCYTES % (AUTO) 9.1 % (20.5-51.5); MEAN CORPUSCULAR HEMOGLOBIN 31 pg (27-31); MEAN CORPUSCULAR HGB CONC 32 % (32-36); MEAN CORPUSCULAR VOLUME 94 fL (79.0-98.0); MONOCYTES # (AUTO) 1.3 K/uL (0.0-1.0); MONOCYTES % (AUTO) 14.1 % (1.7-9.3); NEUTROPHILS % (AUTO) 76.3 % (40.0-70.0); PLATELET COUNT (AUTO) 177 K/uL (130-430); RED BLOOD CELL COUNT(AUTO) 4.41 MIL/uL (4.2-6.2); WHITE BLOOD COUNT (AUTO) 9.2 K/uL (4.8-10.8)
--- NOTE | 2022-12-28 17:30 | NUR ---
DR. GOODSON PLACED 20 TO RIJ, FLUSHED AND PATENT, SECOND IV CATH PLACED TO RW 20 FLUSHED AND PATENT.
[2022-12-28 17:31] LABS: PROTHROMBIN TIME 19.6 SECS (9.5-12.5)
--- NOTE | 2022-12-28 17:45 | NUR ---
I/O PLACE TO E. FLUSHED, PATENT.
[2022-12-28] MEDS ORDERED: NOREPINEPHRINE 4 MG/4 ML VIAL IV ONE (18:13)
[2022-12-28] MEDS ORDERED: KETAMINE 30 MG/3 ML SYRINGE IVP ONE (18:30)
--- NOTE | 2022-12-28 18:30 | NUR ---
Respiratory bedside. at head of bed. MD Campos assessing for ET tube placement.
[2022-12-28 18:32] LABS: BILIRUBIN,URINE NEGATIVE (NEGATIVE); BLOOD, URINE 3+ (NEGATIVE); CLARITY/URINE CLOUDY (CLEAR); COLOR,URINE YELLOW (YELLOW); GLUCOSE,URINE NEGATIVE (NEGATIVE); KETONES,URINE NEGATIVE (NEGATIVE); LEUKOCYTE ESTERASE ,URINE 2+ (NEGATIVE); NITRITE, URINE NEGATIVE (NEGATIVE); PROTEIN URINE 2+ (NEGATIVE); UROBILINOGEN,URINE 0.2 (0.2-1.0)
--- NOTE | 2022-12-28 18:34 | NUR ---
Pt with restless bilateral extremity movement.
--- NOTE | 2022-12-28 18:34 | NUR ---
assessing for ET insertion placement.
--- NOTE | 2022-12-28 18:35 | NUR ---
MD Campos calls 7 10/12 ET 25 at the [facility].
--- NOTE | 2022-12-28 18:36 | NUR ---
MD Campos bedside inserting IO access to right leg distal to patella.
[2022-12-28 18:43] LABS: BACTERIA,URINE MODERATE /HPF (None Seen); MUCUS,URINE None Seen /LPF (None Seen); WBC,URINE >100 /HPF (0-3)
[2022-12-28] MEDS ORDERED: fentaNYL CITRATE/PF 100 MCG/2 ML AMP IVP ONE (18:45)
[2022-12-28] MEDS ORDERED: PROPOFOL DRIP 100 ML IV ONE (18:45)
[2022-12-28 18:49] LABS: BARBITURATE, URINE NEGATIVE (NEG <=200); BENZODIAZEPINE, URINE NEGATIVE (NEG <=150); CANNABINOID, URINE NEGATIVE (NEG <=50); COCAINE, URINE NEGATIVE (NEG <=150); METHAMPHETAMINES SCREEN,URINE NEGATIVE (NEG <=500); OPIATE, URINE NEGATIVE (NEG <=100); PHENCYCLIDINE SCREEN,URINE NEGATIVE (NEG <=25); UR TRICYCLIC ANTIDEPRESSANTS NEGATIVE (NEG <=300); URINE AMPHETAMINE NEGATIVE (NEG <=500); URINE METHADONE NEGATIVE (NEG <=200); URINE OXYCODONE SCREEN NEGATIVE (NEG <=100); URINE PROPOXYPHENE SCREEN NEGATIVE (NEG <=300)
--- NOTE | 2022-12-28 18:51 | NUR ---
med rec completed.
[2022-12-28] MEDS ORDERED: FURO-150 PO (18:53)
--- NOTE | 2022-12-28 18:54 | NUR ---
oil heat technician calls ET 7 10/[address] prosthetics technician contacted to check placement.
[2022-12-28 18:56] LABS: ALANINE AMINOTRANSFERASE 430 U/L (12-78); ALBUMIN 3.2 g/dL (3.4-4.8); ANION GAP 16 (5-15); ASPARTATE AMINOTRANSFERASE 645 U/L (10-37); C-REACTIVE PROTEIN QUANT 7.1 mg/dL (0-0.5); CALCIUM 8.9 mg/dL (8.4-11.0); CHLORIDE 101 mmol/L (98-107); CREATININE 2.79 mg/dL (0.55-1.30); GLUCOSE 62 mg/dL (70-99); TOTAL BILIRUBIN 2.5 mg/dL (0.0-1.0); UREA NITROGEN, BLOOD 33 mg/dL (8-21)
[2022-12-28 18:58] LABS: ACETAMINOPHEN < 1 ug/mL (1-30)
[2022-12-28 18:59] LABS: ALCOHOL, BLOOD < 3 mg/dL (<10)
[2022-12-28 19:30] LABS: ACETONE, SERUM NEGATIVE (NEGATIVE)
--- NOTE | 2022-12-28 19:35 | NUR ---
FFENTANYL 100MCG IVP GIVEN.
--- NOTE | 2022-12-28 19:49 | NUR ---
Patient transported to ICU via gurney, accompanied by Rishi RN, and Bit Tripoler on quality assurance monitor per ACLS protocol.
--- NOTE | 2022-12-28 19:50 | NUR ---
Patient will be admitted to care of Dr. Crawley. Admitted to ICU unit. Will go to room 6. Belongings list completed. Complete and up to date summary report printed. SBAR report to be given at bedside to ANNAMARIE Arambula with opportunity for questions.
--- NOTE | 2022-12-28 19:54 | NUR ---
ENDORSED PT TO ANNAMARIE PRETTY. ALL QUESTIONS AND CONCERNS ADDRESSED.
[2022-12-28] MEDS ORDERED: NOREPINEPHRINE BITARTRATE 4 MG in NS 246 ML IV ONE (20:00)
--- NOTE | 2022-12-28 20:00 | NUR ---
ICU ADMIT PATIENT IS BRADYCARDIC, ON VENT WITH RT AT BEDSIDE. LEVOPHED DRIP INFUSING TO LEFT IJ. SKIN COOL BUT INTACT. SAFETY PRECAUTIONS IN PLACE, WILL CONTINUE TO MONITOR.
[2022-12-28] MEDS ORDERED: DOPamine PREMIX 250 ML IV ONE (20:12)
[2022-12-28] MEDS ORDERED: cefTRIAXone 1 GM in D5W 50 ML IV ONE (20:30)
[2022-12-28] MEDS ORDERED: VECURONIUM BROMIDE 10 MG/VIAL (NORCURON) IVP ONE (20:30)
--- NOTE | 2022-12-28 20:45 | NUR ---
SPOKE TO DR. Yohana KIRKLAND, INFORMED MD OF PATIENTS CURRENT VS. ORDERS TO START DOPAMINE AND IVF. WILL CARRY OUT ORDERS.
[2022-12-28] MEDS ORDERED: DOCUSATE SODIUM 100 MG CAPSULE PO PRN (21:00)
[2022-12-28] MEDS ORDERED: FUROSEMIDE 20 MG/2 ML VIAL IVP ONE (21:00)
[2022-12-28] MEDS ORDERED: MAGNESIUM SULFATE 50 ML IV PRN (21:00)
[2022-12-28] MEDS ORDERED: ACETAMINOPHEN 325 MG TABLET PO PRN ×2 (21:00→21:15)
[2022-12-28] MEDS ORDERED: LORazepam 2 MG/ML VIAL IVP PRN (21:00)
[2022-12-28] MEDS ORDERED: NOREPINEPHRINE BITARTRATE 4 MG in NS 246 ML IV PRN (21:00)
[2022-12-28] MEDS ORDERED: ONDANSETRON HCL 4 MG/2 ML VIAL IVP PRN (21:00)
[2022-12-28] MEDS ORDERED: NALOXONE HCL 0.4 MG/ML AMP (NARCAN) IVP PRN ×2 (21:00)
[2022-12-28] MEDS ORDERED: MORPHINE 2 MG/ML INJ. SYRINGE IVP PRN ×2 (21:00)
--- NOTE | 2022-12-28 21:15 | NUR ---
RECEIVED REPORT FROM REGULATORY AFFAIRS STRATEGY SPECIALISTANNAMARIE PRETTY AT BEDSIDE.
[2022-12-28] MEDS: D5NS 1,000 ML IV SCH (21:21)
[2022-12-28] MEDS: DOPamine PREMIX 250 ML IV PRN (21:22)
[2022-12-28] MEDS: PROPOFOL DRIP 100 ML IV PRN (21:23)
--- NOTE | 2022-12-28 21:23 | NUR ---
CONSULTATION PAGED/CALLED Reason for Consultation: renal failure Person Who was Notified: Tanner Consulting Physician: lanre Collections Assistant Specialty: Ordering Physician: litzy
--- NOTE | 2022-12-28 21:26 | NUR ---
CONSULTATION PAGED/CALLED Reason for Consultation: sepsis Person Who was Notified: Tanner Consulting Physician: [facility] Coordinator Specialty: Ordering Physician: Palmer
[2022-12-28] MEDS: HEPARIN SODIUM,PORCINE 5,000 UNITS/ML VIAL SUBCUT SCH (21:55)
--- NOTE | 2022-12-28 22:44 | NUR ---
CONSULTATION PAGED/CALLED Reason for Consultation: critical care Person Who was Notified: dao Consulting Physician: catherine Link Cutter Specialty: Ordering Physician: litzy
--- NOTE | 2022-12-28 22:55 | NUR ---
SPOKE TO DR. ANNA MD INFORMED OF PATIENTS LATEST ABG'S AND LAB RESULTS. ORDERS TO GIVE LR BOLUS X2. WILL CARRY OUT ORDER.
[2022-12-28] MEDS ORDERED: LR 1,000 ML IV SCH ×3 (23:00)
[2022-12-28] MEDS ORDERED: PIPERACILLIN/TAZOBACTAM 2.25 GM VIAL IV ONE (23:06)
[2022-12-28] MEDS ORDERED: cefTRIAXone 1 GM VIAL ONE (23:06)
[2022-12-29] VITALS (31 sets, daily range): BP systolic 72–147
[2022-12-29] MEDS ORDERED: LR 1,000 ML IV SCH
[2022-12-29] MEDS: PIPERACILLIN/TAZO 2.25G/DEX-IS 50 ML IV SCH ×4 (00:05→21:31)
[2022-12-29] MEDS ORDERED: LR 1,000 ML IV ONE ×2 (00:30→01:30)
[2022-12-29] MEDS: PROPOFOL DRIP 100 ML IV PRN ×2 (03:01→18:26)
--- NOTE | 2022-12-29 03:23 | NUR ---
DR. LEON HERE TO SEE PATIENT.
--- NOTE | 2022-12-29 05:11 | NUR ---
CONSULTATION PAGED/CALLED Reason for Consultation: bradycardia Person Who was Notified: faraz Consulting Physician: kulwinder Chimney Mechanic Specialty: CV Ordering Physician: litzy
[2022-12-29] MEDS: DOPamine PREMIX 250 ML IV PRN ×2 (05:41→18:25)
[2022-12-29 05:48] LABS: BASOPHILS % (AUTO) 0.3 % (0.0-2.0); EOSINOPHILS % (AUTO) 0.1 % (0.0-4.0); HEMATOCRIT 42.6 % (36-54); HEMOGLOBIN 13.9 g/dL (14.0-18.0); LYMPHOCYTES # (AUTO) 0.9 K/uL (1.0-5.5); LYMPHOCYTES % (AUTO) 8.2 % (20.5-51.5); MEAN CORPUSCULAR HEMOGLOBIN 30 pg (27-31); MEAN CORPUSCULAR HGB CONC 33 % (32-36); MEAN CORPUSCULAR VOLUME 92 fL (79.0-98.0); MONOCYTES # (AUTO) 0.9 K/uL (0.0-1.0); MONOCYTES % (AUTO) 8.4 % (1.7-9.3); NEUTROPHILS # (AUTO) 9.2 K/uL (1.8-7.7); PLATELET COUNT (AUTO) 155 K/uL (130-430); RED BLOOD CELL COUNT(AUTO) 4.63 MIL/uL (4.2-6.2); RED CELL DISTRIBUTION WIDTH 18.9 % (9.0-15.0); WHITE BLOOD COUNT (AUTO) 11.1 K/uL (4.8-10.8)
[2022-12-29 06:43] LABS: ALANINE AMINOTRANSFERASE 920 U/L (12-78); ALBUMIN 2.9 g/dL (3.4-4.8); ANION GAP 14 (5-15); ASPARTATE AMINOTRANSFERASE 1318 U/L (10-37); BILIRUBIN,DIRECT 1.2 mg/dL (0.0-0.3); CALCIUM 8.8 mg/dL (8.4-11.0); CHLORIDE 102 mmol/L (98-107); CREATININE 2.68 mg/dL (0.55-1.30); GLUCOSE 158 mg/dL (70-99); UREA NITROGEN, BLOOD 34 mg/dL (8-21)
--- NOTE | 2022-12-29 06:55 | NUR ---
SPOKE TO PATIENTS SON, UPDATE GIVEN.
--- NOTE | 2022-12-29 07:15 | NUR ---
ENDORSEMENT PATIENT CARE ENDORSED TO MERT DE LUNA.
--- NOTE | 2022-12-29 08:00 | NUR ---
patient in bed, no signs or symptoms of distress. intubated yesterday 12/28 in ER. current vent settings ac rate 18, tv 500, fio2 50%, peep 5. RIJ triple lumen running dopamine 7mcg/kg/min, propofol 30mcg/kg/min, and D5%NS 80ml/hr. OI in right lower extremity beltran removed and pressure dressing applied, patient tolerated well. powell draining to gravity. OGT clamped and secured. bed in lowest locked position, call light within reach, safety measures in place.
--- NOTE | 2022-12-29 08:28 | NUR ---
DR STRICKLAND, DR KIRKLAND, AND DR CASTILLO ROUNDED ON PATIENT SINCE 0700. UPDATED ON PATIENT STATUS. THEY UPDATED SON ON PLAN OF CARE. DR CASTILLO ORDERED TO DO CPAP TRIALS AND DO ABG AFTER 2HOURS IF PATIENT TOLERATES.
[2022-12-29] MEDS: D5NS 1,000 ML IV SCH ×2 (08:37→21:33)
[2022-12-29] MEDS: HEPARIN SODIUM,PORCINE 5,000 UNITS/ML VIAL SUBCUT SCH ×2 (08:37→21:33)
--- NOTE | 2022-12-29 09:16 | NUR ---
Wound Evaluation: Wound Consult ordered for Low Bib Score. Patient evaluated for a low Bib score of 14. Patient is intubated, sedated, and received in a Flora Bed. Patient needs to be turned in bed. Skin is intact. Recommend reposition patient side to side only every 2 hours with pillow support. Elevate, off-load and float bilateral heels with pillows. Offload pressure areas with pillows for pressure re-distribution. Perform skin care and monitor skin integrity Q shift. Use moisture barrier cream on moisture susceptible areas QID and PRN for soiling. Place patient on a low air-loss mattress.
[2022-12-29] MEDS ORDERED: VANCOMYCIN HCL 500 MG in NS 100 ML IV SCH (11:00)
--- NOTE | 2022-12-29 11:58 | NUR ---
RT NOTES 1120 PLACED PT ON CPAP5 PS10 TRIAL FOR 2HOURS TOLERATED PER DR DONNELLY. WILL MONITOR, ANNAMARIE SHERIDAN AWARE. Addendum: 12/29/22 at 1159 by Dinorah Diaz RT Amended: Links added.
--- NOTE | 2022-12-29 14:10 | NUR ---
RT NOTES 6838 PT PLACED BACK TO AC. TOLERATED CPAP TRIAL. WILL CONT TO MONITOR. Addendum: 12/29/22 at 1421 by Dinorah Diaz RT Amended: Links added.
--- NOTE | 2022-12-29 15:33 | NUR ---
CRITICAL LAB VALUE TROP 824 RELAYED / ENDORSED TO NURSE JAMES.
--- NOTE | 2022-12-29 19:15 | NUR ---
Opening notes Received report from endorsing morning shift RN for continuity of care. Patient is lying in bed with IVF D5NS @ 80 mL/hr, propofol @ 10 mcg/kg/min, and dopamine drip @ 10 mcg/kg/min. Patient's vital signs blood pressure 123/72, heart rate 55, respirations 16, and SPO2 98% on ventilator. Ventilator settings AC 16, tidal volume 500, FIo2 50%, and peep of 5. Fernández catheter is in place draining to gravity. OGT is in place clamped. Bed is locked and in lowest position, fall and safety precautions is in place.
[2022-12-30] VITALS (36 sets, daily range): BP systolic 105–149
[2022-12-30] MEDS: DOPamine PREMIX 250 ML IV PRN ×3 (03:16→17:06)
[2022-12-30 05:26] LABS: BASOPHILS # (AUTO) 0.1 K/uL (0.0-0.2); BASOPHILS % (AUTO) 0.6 % (0.0-2.0); EOSINOPHILS # (AUTO) 0.1 K/uL (0.0-0.4); EOSINOPHILS % (AUTO) 0.8 % (0.0-4.0); HEMATOCRIT 46.2 % (36-54); HEMOGLOBIN 15.4 g/dL (14.0-18.0); LYMPHOCYTES # (AUTO) 0.8 K/uL (1.0-5.5); LYMPHOCYTES % (AUTO) 7.3 % (20.5-51.5); MEAN CORPUSCULAR HEMOGLOBIN 31 pg (27-31); MEAN CORPUSCULAR HGB CONC 33 % (32-36); MEAN CORPUSCULAR VOLUME 92 fL (79.0-98.0); MONOCYTES # (AUTO) 0.8 K/uL (0.0-1.0); MONOCYTES % (AUTO) 7.3 % (1.7-9.3); NEUTROPHILS # (AUTO) 9.2 K/uL (1.8-7.7); PLATELET COUNT (AUTO) 200 K/uL (130-430); RED BLOOD CELL COUNT(AUTO) 5.03 MIL/uL (4.2-6.2); RED CELL DISTRIBUTION WIDTH 19.2 % (9.0-15.0); WHITE BLOOD COUNT (AUTO) 10.9 K/uL (4.8-10.8)
[2022-12-30 05:37] LABS: INR 1.8 (0.80-1.20); PROTHROMBIN TIME 17.7 SECS (9.5-12.5)
[2022-12-30 05:46] LABS: ALANINE AMINOTRANSFERASE 787 U/L (12-78); ALBUMIN 2.2 g/dL (3.4-4.8); ANION GAP 12 (5-15); ASPARTATE AMINOTRANSFERASE 628 U/L (10-37); CALCIUM 8.2 mg/dL (8.4-11.0); CHLORIDE 104 mmol/L (98-107); CREATININE 2.53 mg/dL (0.55-1.30); GLUCOSE 172 mg/dL (70-99); TOTAL BILIRUBIN 2.1 mg/dL (0.0-1.0); UREA NITROGEN, BLOOD 39 mg/dL (8-21)
[2022-12-30] MEDS: PIPERACILLIN/TAZO 2.25G/DEX-IS 50 ML IV SCH ×3 (06:00→22:53)
--- NOTE | 2022-12-30 07:30 | NUR ---
RT NOTES FIO2 to 0.40 PER titration order.
--- NOTE | 2022-12-30 07:47 | NUR ---
RT NOTES Discuss CPAP trial with Rn, will notify Rt when to start SBT
--- NOTE | 2022-12-30 08:00 | NUR ---
patient in bed, no signs or symptoms of distress. intubated 12/28 in ER. current vent settings ac rate 18, tv 500, fio2 40%, peep 5. RIJ triple lumen running dopamine 15mcg/kg/min, propofol 15mcg/kg/min, and D5%NS 80ml/hr. Fernández draining to gravity. OGT clamped and secured. CPAP trials per Dr. Martin. Bed in lowest locked position, call light within reach, safety measures in place.
[2022-12-30] MEDS: D5NS 1,000 ML IV SCH ×3 (08:43→23:05)
[2022-12-30] MEDS: HEPARIN SODIUM,PORCINE 5,000 UNITS/ML VIAL SUBCUT SCH ×2 (08:45→22:52)
[2022-12-30] MEDS ORDERED: POTASSIUM CHLORIDE 20 MEQ/PKT PACKET PO ONE (08:45)
--- NOTE | 2022-12-30 09:30 | NUR ---
PATIENT SON JOSÉ LUIS AT BEDSIDE, UPDATED ON PLAN OF CARE FROM DR STRICKLAND, DR KIRKLAND, DR HATFIELD, AND DR MAURO.
--- NOTE | 2022-12-30 09:33 | NUR ---
Dietitian Recommendations * Initiate Vital AF 1.2 @ 50 mL/hr (goal) via NGT/OGT, if medically appropriate Provides (w/ prop):1714 kcal, 90g PRO, 973mL free water Meets: 104% est kcal, 101% of est upper PRO needs * MD to clarify free water flush * Consider DC D5 once TF begins GS, MPH, RD Please refer to RD Assessment for further details. Thanks! Addendum: 12/30/22 at [address] Amended: Links added.
[2022-12-30] MEDS: MUPIROCIN 2% TOPICAL OINTMENT 22 GM NS SCH ×2 (10:18→22:54)
--- NOTE | 2022-12-30 10:35 | NUR ---
RT NOTES Coordinated with RN, Vent to CPAP 5 PS 10. No distress noted. Will monitor pt.
--- NOTE | 2022-12-30 11:37 | NUR ---
RT NOTES end cpap vent back to AC due to tachypnea
[2022-12-30 12:39] LABS: CHOLESTEROL 80 mg/dL (<200); HDL CHOLESTEROL 29 mg/dL (>45); TRIGLYCERIDES 83 mg/dL (30-150)
[2022-12-30 13:07] LABS: HEPATITIS A AB, IgM Negative (Negative); HEPATITIS B CORE AB, IgM Negative (Negative); HEPATITIS B SURFACE AG Negative (Negative)
[2022-12-30] MEDS: PROPOFOL DRIP 100 ML IV PRN (17:05)
--- NOTE | 2022-12-30 19:30 | NUR ---
RECEIVED PATIENT SEDATED WITH PROPOFOL AT 10 MCG/KG/MIN, RASS -2. PATIENT IS ORALLY INTUBATED, AC18, TV 500, FIO2 50%, PEEP 5. SAT, 98%. BILATERAL BASES ARE DIMINISHED. DIRECTOR OF BUSINESS OPERATIONS IS SHOWING SB WITH MULTIPLE PVC'S. PATIENT IS ON DOPAMINE AT 15 MCG/KG/MIN. BLOOD PRESSURE IS STABLE. D5NS IS INFUSING AT 80 ML/HR. ALL IVS ARE INFUSING VIA RIGHT IJ TLC. ABDOMEN IS SOFT AND NON-DISTENDED. OGT IS INTACT AND PATENT, WILL START FEEDING OF VITAL AF 1.2 TONIGHT. SENA INTACT AND PATENT, DRAINING WELL. PATIENT IS AFEBRILE.
[2022-12-31] VITALS (38 sets, daily range): BP systolic 128–160
[2022-12-31] MEDS: PIPERACILLIN/TAZO 2.25G/DEX-IS 50 ML IV SCH ×2 (05:39→13:10)
[2022-12-31] MEDS: DOPamine PREMIX 250 ML IV PRN ×2 (05:39→12:52)
[2022-12-31] MEDS: PROPOFOL DRIP 100 ML IV PRN (05:40)
[2022-12-31 05:43] LABS: BASOPHILS # (AUTO) 0.1 K/uL (0.0-0.2); BASOPHILS % (AUTO) 0.6 % (0.0-2.0); EOSINOPHILS # (AUTO) 0.1 K/uL (0.0-0.4); HEMATOCRIT 48.4 % (36-54); HEMOGLOBIN 16.3 g/dL (14.0-18.0); LYMPHOCYTES # (AUTO) 0.7 K/uL (1.0-5.5); LYMPHOCYTES % (AUTO) 6.8 % (20.5-51.5); MEAN CORPUSCULAR HEMOGLOBIN 31 pg (27-31); MEAN CORPUSCULAR HGB CONC 34 % (32-36); MEAN CORPUSCULAR VOLUME 92 fL (79.0-98.0); MONOCYTES # (AUTO) 0.9 K/uL (0.0-1.0); MONOCYTES % (AUTO) 7.8 % (1.7-9.3); NEUTROPHILS # (AUTO) 9.2 K/uL (1.8-7.7); NEUTROPHILS % (AUTO) 83.8 % (40.0-70.0); PLATELET COUNT (AUTO) 175 K/uL (130-430); RED BLOOD CELL COUNT(AUTO) 5.28 MIL/uL (4.2-6.2); RED CELL DISTRIBUTION WIDTH 18.8 % (9.0-15.0); WHITE BLOOD COUNT (AUTO) 10.9 K/uL (4.8-10.8)
[2022-12-31 06:13] LABS: ANION GAP 12 (5-15); CALCIUM 8.3 mg/dL (8.4-11.0); CHLORIDE 104 mmol/L (98-107); CREATININE 2.22 mg/dL (0.55-1.30); GLUCOSE 166 mg/dL (70-99); UREA NITROGEN, BLOOD 31 mg/dL (8-21)
[2022-12-31 06:34] LABS: INR 1.8 (0.80-1.20); PROTHROMBIN TIME 17.8 SECS (9.5-12.5)
--- NOTE | 2022-12-31 07:15 | NUR ---
received pt from manager night RN, pt lying in the bed, on Vent, AC RR 16, TV 500, FiO2 30%, Peep 5, on restraint due to pulling medical devices, moving legs spontaneously, BP is maintained, manager global Afib with PVC, heart sound s1,s2 present, lung sound diminished, general edema all extremities, bilateral arm ecchymosis. Right IJ infusing with dopamine @ 13mcg /kg/min, propofol 5mcg/kg/min, D5NS @80cc/hr. F/c patent draining yellow urine to bag, OG feeding with AF1.2 at 30cc/hr goal 50, 30cc residue.
--- NOTE | 2022-12-31 07:45 | NUR ---
RT NOTES start cpap Coordinated with RN, sedation is off, vent to cpap 5 ps 10. Pt is awake, but did not open eyes to command. Dr Mario montenegro, orders to do CPAP for 2 hour, for possible extubation.
[2022-12-31] MEDS: HEPARIN SODIUM,PORCINE 5,000 UNITS/ML VIAL SUBCUT SCH ×2 (08:50→20:17)
[2022-12-31] MEDS: MUPIROCIN 2% TOPICAL OINTMENT 22 GM NS SCH ×2 (09:13→20:13)
--- NOTE | 2022-12-31 09:15 | NUR ---
RT NOTES Son Kalin at bedside, stated that pt was alert and carried out conversation prior to this admission/infection. Son was made aware of plans for possible extubation, but will convey information he provided mt to Dr Martin, including maybe hold off on extubation today.
--- NOTE | 2022-12-31 10:07 | NUR ---
RT NOTES Pt is still not following commands, no distress noted. RSBI 56. Vent back to AC per 2 hour CPAP trial.
--- NOTE | 2022-12-31 10:10 | NUR ---
RT NOTES Spoke to Dr Martin regarding pt's progress on CPAP trial, including son's concerns regarding pt's mentation. stated we'll try again tomorrow for possible extubation once pt is more awake.
--- NOTE | 2022-12-31 10:25 | NUR ---
per RT Dr. Tony Gonzalez resume AC mode, propofol is resumed.
--- NOTE | 2022-12-31 12:00 | NUR ---
pt lying in bed, restless, titrated propofol to 10mcg/kg/min. on AC mode 16 VT 500 FiO2 30 PEEP 5, infusing dopamine 13mcg/kg/min for bradycardia, KVO with NS at 5cc/hr, on restraint due to pulling tubes. oral suction and oral care, powell cath patent draining with yellow urine
--- NOTE | 2022-12-31 16:00 | NUR ---
pt lying in bed, sedated on propofol to 10mcg/kg/min. on AC mode 16 VT 500 FiO2 30 PEEP 5, infusing dopamine 13mcg/kg/min for bradycardia, KVO with NS at 5cc/hr, OGT feeding with AF 1.2 at 50cc/hr tolerated well, on restraint due to pulling tubes. oral suction and oral care done, powell cath patent draining with yellow urine.
--- NOTE | 2022-12-31 19:13 | NUR ---
handed off pt to oncoming nurse, VS is maintained with drips, breathing on vent
[2023-01-01] VITALS (37 sets, daily range): BP systolic 109–156
[2023-01-01] MEDS: PIPERACILLIN/TAZO 2.25G/DEX-IS 50 ML IV SCH ×2 (03:28→07:03)
[2023-01-01 06:22] LABS: BASOPHILS # (AUTO) 0.1 K/uL (0.0-0.2); BASOPHILS % (AUTO) 0.7 % (0.0-2.0); EOSINOPHILS # (AUTO) 0.1 K/uL (0.0-0.4); EOSINOPHILS % (AUTO) 0.8 % (0.0-4.0); HEMATOCRIT 47.8 % (36-54); LYMPHOCYTES # (AUTO) 0.6 K/uL (1.0-5.5); LYMPHOCYTES % (AUTO) 6.3 % (20.5-51.5); MEAN CORPUSCULAR HEMOGLOBIN 30 pg (27-31); MEAN CORPUSCULAR HGB CONC 33 % (32-36); MEAN CORPUSCULAR VOLUME 91 fL (79.0-98.0); MONOCYTES # (AUTO) 0.9 K/uL (0.0-1.0); MONOCYTES % (AUTO) 9.9 % (1.7-9.3); NEUTROPHILS # (AUTO) 7.6 K/uL (1.8-7.7); NEUTROPHILS % (AUTO) 82.3 % (40.0-70.0); PLATELET COUNT (AUTO) 133 K/uL (130-430); RED BLOOD CELL COUNT(AUTO) 5.24 MIL/uL (4.2-6.2); RED CELL DISTRIBUTION WIDTH 19.4 % (9.0-15.0); WHITE BLOOD COUNT (AUTO) 9.2 K/uL (4.8-10.8)
[2023-01-01 06:37] LABS: INR 1.4 (0.80-1.20); PROTHROMBIN TIME 14.4 SECS (9.5-12.5)
[2023-01-01 06:44] LABS: ALANINE AMINOTRANSFERASE 404 U/L (12-78); ALBUMIN 1.9 g/dL (3.4-4.8); ANION GAP 12 (5-15); ASPARTATE AMINOTRANSFERASE 135 U/L (10-37); CALCIUM 7.8 mg/dL (8.4-11.0); CHLORIDE 106 mmol/L (98-107); CREATININE 1.72 mg/dL (0.55-1.30); GLUCOSE 143 mg/dL (70-99); TOTAL BILIRUBIN 2.1 mg/dL (0.0-1.0); UREA NITROGEN, BLOOD 34 mg/dL (8-21)
--- NOTE | 2023-01-01 06:58 | NUR ---
PAGE OUT TO DR. MAURO FOR LAB RESULTS.
--- NOTE | 2023-01-01 07:20 | NUR ---
pt lying in bed, sedated on propofol to 10mcg/kg/min. on Vent AC mode 16 VT 500 FiO2 30 PEEP 5, nurse monitoring shows Afib with BBB and PVCs, Right IJ triple lumen PICC infusing with dopamine 10mcg/kg/min for bradycardia, TKO with NS at 5cc/hr, on bilateral wrist restraint due to pulling tubes. OGT feeding vital AF 1.2 @ 50 cc/hr tolerated well, powell cath patent draining with yellow urine.
[2023-01-01] MEDS ORDERED: HEPARIN SODIUM,PORCINE 5,000 UNITS/ML VIAL SUBCUT SCH (09:00)
[2023-01-01] MEDS: cefTRIAXone 1 GM in D5W 50 ML IV SCH (09:24)
[2023-01-01] MEDS: MUPIROCIN 2% TOPICAL OINTMENT 22 GM NS SCH (09:27)
[2023-01-01] MEDS: HEPARIN SODIUM,PORCINE 5,000 UNITS/ML VIAL SUBCUT SCH (09:27)
[2023-01-01] MEDS ORDERED: COMMUNICATION ORDER XX ONE (09:30)
[2023-01-01] MEDS: KCL 20 mEq in 100 mL (PREMIX) 100 ML IV SCH ×3 (10:12→15:40)
--- NOTE | 2023-01-01 12:00 | NUR ---
pt lying in the bed, sedated on propofol, breathing on vent, on dopamine drip. oral care performed.
[2023-01-01] MEDS: DOPamine PREMIX 250 ML IV PRN ×2 (12:29→18:46)
[2023-01-01] MEDS: PROPOFOL DRIP 100 ML IV PRN (12:33)
--- NOTE | 2023-01-01 15:23 | NUR ---
Nutrition F/U Admitting Diagnosis Respiratory Failure, NSTEMI Reviewed Pertinent Medical/Surgical Hx Medical Record Patient Primary RN Medical History Comment: Per Cardio consult 12/29: BP is stabilizing; renal functions worsening; mental obtundation likely d/t metabolic encephalopathy. per H&P: He has history of coronary artery disease along with CHF and hypertension. He is on multiple cardiac meds. He has a history of coronary artery bypass graft as well. He was found to be severely bradycardic and unable to protect his airway and he was intubated. He was also found to have sepsis and is in septic shock as well. Initial workup significant for aspiration PNA, moderate malnutrition w/ albumin of 3.2 (however albumin is not a reliable source of malnutrition). Pt also found w/ ENDER. Subjective Information: RD rounded to ICU and witnessed TF infusing as per physician order. Primary RN reported that pt has been tolerating TF at goal rate w/ less than 2 ml GRV. No BM reported or documented since admission (12/28; 4 days ago). RN stated pt's TF started about ~24 hours ago, CPAP trials done earlier, however, pt is not following commands. Propofol seen infusing at 10 mcg/kg/min (4.355 ml/hr, 115 kcal/day). Current TF prescription is adequate/appropriate. Current Diet Order/Nutrition Support: Vital AF 1.2 at 50 ml/hr, Free Water Flush: PER MD via OGT x2 days Patient/Significant Other Unable To Verbalize Education Provided Not Indicated Pertinent Medications: KCl IV at 50 ml/hr, heparin, dopamine Pertinent Labs: WBC 9.2 WNL, K 2.9 L, BUN 34 H, CRE 1.72 H, Lactic acid 2.7 H (12/30), Troponin 569* H (12/30) Height (Feet) 5 feet Height (Inches) 10.00 inches Weight (Pounds) 163 pounds -- stable since 12/30 Patient Weight 73.936 kg Body Mass Index 23.39 kg/m2 %IBW 99 [place]/Adjusted Body Weight 166#/ 75 kg Recent Weight Change No - per RN screen Weight Status Appropriate Food Allergies unable to assess Usual Diet At Home Regular per RN screen Skin Integrity Comment: Bib: 13 Wounds: ecchymosis on L arm, bilat knees; dry scab on R arm; erythema on posterior buttocks Edema: bilat hand 2+ pitting Current % PO NPO NEW Estimated Energy Expenditure (kcals/day) 1555 (PSU 2003: vent/ICU. MSJ 1430; Tmax: 36.8'C; Ve: 8.1) Estimated Protein Required (g/day) 59-89 (0.8-1.2 g/kg CBW d/t sepsis, ENDER) Estimated Fluid Required (l/day) Refer to MD (CHF) Problem/Etiology/Signs/Symptoms * Inadequate oral intake r/t diet order AEB no diet order since 12/28. *Improved w/ EN support Expected Outcomes/Goals Nutrition support initiated w/in 1-2 days, improvements in skin integrity, improvements in bowel function w/BM q1-3 days Dietitian Recommendations * Continue Vital AF 1.2 at 50 ml/hr (goal rate), Free Water Flush: PER MD via OGT Provides (w/ current propofol infusion):1714 kcal, 90g PRO, 973mL free water Meets: 100% of estimated caloric needs and 101% of upper end of estimated protein needs * MD to clarify free water flush Follow Up High Risk: F/U in 2-3 days
--- NOTE | 2023-01-01 15:32 | NUR ---
Dietitian Recommendations * Continue Vital AF 1.2 at 50 ml/hr (goal rate), Free Water Flush: PER MD via OGT Provides (w/ current propofol infusion):1714 kcal, 90g PRO, 973mL free water Meets: 100% of estimated caloric needs and 101% of upper end of estimated protein needs * MD to clarify free water flush LP, MS, RD Please refer to Nutrition F/U for details.
--- NOTE | 2023-01-01 16:00 | NUR ---
pt lying in the bed, sedated on propofol, breathing on vent, on dopamine drip. updated pt's son.
[2023-01-02] VITALS (30 sets, daily range): BP systolic 63–156
[2023-01-02] MEDS: MUPIROCIN 2% TOPICAL OINTMENT 22 GM NS SCH ×3 (00:18→21:24)
[2023-01-02] MEDS: HEPARIN SODIUM,PORCINE 5,000 UNITS/ML VIAL SUBCUT SCH ×3 (00:20→21:26)
[2023-01-02] MEDS: DOPamine PREMIX 250 ML IV PRN ×6 (01:21→21:49)
[2023-01-02 05:42] LABS: BASOPHILS % (AUTO) 0.4 % (0.0-2.0); EOSINOPHILS % (AUTO) 0.2 % (0.0-4.0); HEMATOCRIT 45.2 % (36-54); HEMOGLOBIN 15.4 g/dL (14.0-18.0); LYMPHOCYTES # (AUTO) 0.8 K/uL (1.0-5.5); LYMPHOCYTES % (AUTO) 8.3 % (20.5-51.5); MEAN CORPUSCULAR HEMOGLOBIN 31 pg (27-31); MEAN CORPUSCULAR HGB CONC 34 % (32-36); MEAN CORPUSCULAR VOLUME 90 fL (79.0-98.0); MONOCYTES # (AUTO) 0.9 K/uL (0.0-1.0); MONOCYTES % (AUTO) 9.6 % (1.7-9.3); NEUTROPHILS # (AUTO) 7.8 K/uL (1.8-7.7); NEUTROPHILS % (AUTO) 81.5 % (40.0-70.0); PLATELET COUNT (AUTO) 148 K/uL (130-430); RED BLOOD CELL COUNT(AUTO) 5.02 MIL/uL (4.2-6.2); RED CELL DISTRIBUTION WIDTH 18.6 % (9.0-15.0); WHITE BLOOD COUNT (AUTO) 9.6 K/uL (4.8-10.8)
[2023-01-02 05:46] LABS: ANION GAP 10 (5-15); CALCIUM 7.9 mg/dL (8.4-11.0); CHLORIDE 106 mmol/L (98-107); CREATININE 1.49 mg/dL (0.55-1.30); GLUCOSE 166 mg/dL (70-99); UREA NITROGEN, BLOOD 36 mg/dL (8-21)
[2023-01-02 07:26] LABS: BILIRUBIN,URINE NEGATIVE (NEGATIVE); BLOOD, URINE 2+ (NEGATIVE); COLOR,URINE YELLOW (YELLOW); GLUCOSE,URINE NEGATIVE (NEGATIVE); KETONES,URINE NEGATIVE (NEGATIVE); LEUKOCYTE ESTERASE ,URINE 2+ (NEGATIVE); NITRITE, URINE NEGATIVE (NEGATIVE); PH,URINE 5.5 (5.0-8.0); PROTEIN URINE NEGATIVE (NEGATIVE); UROBILINOGEN,URINE 0.2 (0.2-1.0)
[2023-01-02 07:37] LABS: CLARITY/URINE HAZY (CLEAR)
[2023-01-02 07:50] LABS: WBC,URINE 20-50 /HPF (0-3)
[2023-01-02 07:51] LABS: BACTERIA,URINE MODERATE /HPF (None Seen); MUCUS,URINE 1+ /LPF (None Seen)
--- NOTE | 2023-01-02 08:00 | NUR ---
AM ASSESSMENT PT SEDATED WITH PROPOFOL DRIP, HEART RATE RANGING 58 TO 63, BP 63/32, 61/28, DR STRICKLAND AT BEDSIDE, NEW ORDERS RECEIVED, 500 ML BOLUS INITIATED THRU RIGHT JUGULAR CENTRAL LINE, LEVOPHED DRIP BAG ON STANDBY. PT'S SON JOSÉ LUIS IN THE ROOM ,UPDATED ON HIS FATHER'S STATUS.
[2023-01-02] MEDS ORDERED: NOREPINEPHRINE 4 MG/4 ML VIAL IV ONE (08:03)
--- NOTE | 2023-01-02 08:13 | NUR ---
LOC PT OFF PROPOFOL, WILL ATTEMPT TO DO BREATHING TRIAL. BP NOW READS 97/66, 114/57.
[2023-01-02] MEDS ORDERED: NS 500 ML IV ONE (08:30)
[2023-01-02] MEDS ORDERED: NOREPINEPHRINE BITARTRATE 8 MG in NS 242 ML IV PRN (08:30)
--- NOTE | 2023-01-02 09:00 | NUR ---
0855 SEDATION IS OFF AND PLACED ON CPAP 5, PS 8, FIO2 30%. PATIENT BECAME TACHYPNEIC, RR 40'S. PLACED BACK TO PREVIOUS VENT SETTINGS. PATIENT NOT TOLERATED CPAP AT THIS TIME. TRY CPAP LATER. RN AWARE.
--- NOTE | 2023-01-02 09:10 | NUR ---
REPORT CARE ENDORSED TO ANNAMARIE LEWIS.
[2023-01-02 09:26] LABS: INR 1.3 (0.80-1.20); PROTHROMBIN TIME 13.5 SECS (9.5-12.5)
[2023-01-02] MEDS ORDERED: DOCUSATE SODIUM 100 MG/10 ML UDC GT PRN (09:30)
[2023-01-02] MEDS: POTASSIUM CHLORIDE 20 MEQ TAB.PRT.SR PO PRN (09:35)
[2023-01-02] MEDS: cefTRIAXone 1 GM in D5W 50 ML IV SCH (09:37)
--- NOTE | 2023-01-02 10:14 | NUR ---
Nutrition F/U Admitting Diagnosis Respiratory Failure, NSTEMI Medical History Comment: Per Cardio consult 12/29: BP is stabilizing; renal functions worsening; mental obtundation likely d/t metabolic encephalopathy. per H&P: He has history of coronary artery disease along with CHF and hypertension. He is on multiple cardiac meds. He has a history of coronary artery bypass graft as well. He was found to be severely bradycardic and unable to protect his airway and he was intubated. He was also found to have sepsis and is in septic shock as well. Initial workup significant for aspiration PNA, moderate malnutrition w/ albumin of 3.2 (however albumin is not a reliable source of malnutrition). Pt also found w/ ENDER. Subjective Information: RD rounded to ICU and witnessed TF infusing as per physician order. Primary RN reported that pt has been tolerating TF w/ no GRV. RN said pt has not had BM since admit (5 days); she contacted Dr and will start him on bowel regimen. RD witnessed pt off propfol and Vetot of 8.1. RN said he only lasted about 5 minutes in CPAP but would likely try again soon. Per EMR review: abd soft w/ active bowel sounds. Current TF prescription is adequate/appropriate. Current Diet Order/Nutrition Support: Vital AF 1.2 at 50 ml/hr, Free Water Flush: 100mL q8h via OGT x 0 days Pertinent Medications: heparin, dopamine Pertinent Labs: WBC 9.6 WNL, K 3.4 L, BUN 36 H, CRE 1.49 H, Lactic acid 2.7 H (12/30), Troponin 569* H (12/30), BNP 2390 H Height (Feet) 5 feet Height (Inches) 10.00 inches Weight (Pounds) 163 pounds -- stable since 12/30 Patient Weight 73.936 kg Body Mass Index 23.39 kg/m2 %IBW 99 [place]/Adjusted Body Weight 166#/ 75 kg Recent Weight Change No - per RN screen Weight Status Appropriate Food Allergies unable to assess Usual Diet At Home Regular per RN screen Skin Integrity Comment: Bib: 13 Wounds: ecchymosis on L arm, bilat knees; dry scab on R arm; erythema on posterior buttocks Edema: bilat hand 2+ pitting Current % PO NPO Estimated Energy Expenditure (kcals/day) 1555 (PSU 2003: vent/ICU. MSJ 1430; Tmax: 36.8'C; Ve: 8.1) Estimated Protein Required (g/day) 59-89 (0.8-1.2 g/kg CBW d/t sepsis, ENDER) Estimated Fluid Required (l/day) Refer to (CHF) Problem/Etiology/Signs/Symptoms * Inadequate oral intake r/t diet order AEB no diet order since 12/28. *Improved w/ EN support Expected Outcomes/Goals EN tolerated at goal rate, EN provides >95% estimated nutritional needs, improvements in skin integrity, nutrition-related labs trending WNL, weight maintenance, BM q 1-3 days Dietitian Recommendations * Continue Vital AF 1.2 at 50 ml/hr (goal rate), Free Water Flush: 100mL q8H via OGT Provides:1440 kcal, 90g PRO, 1273mL free water (inc fwf) Meets: 93% of estimated caloric needs and 101% of upper end of estimated protein needs * Consider bowel regimen * If pt is extubated, please contact to re-assess nutrient needs Follow Up Moderate Risk: F/U in 3-5 days GS, MPH, RD
--- NOTE | 2023-01-02 10:16 | NUR ---
Dietitian Recommendations * Continue Vital AF 1.2 at 50 ml/hr (goal rate), Free Water Flush: 100mL q8H via OGT Provides:1440 kcal, 90g PRO, 1273mL free water (inc fwf) Meets: 93% of estimated caloric needs and 101% of upper end of estimated protein needs * Consider bowel regimen * If pt is extubated, please contact RD to re-assess nutrient needs GS, MPH, RD Please refer to Nutrition F/U for further details. Thanks!
--- NOTE | 2023-01-02 12:04 | NUR ---
RT NOTES 1035 PT PLACED ON CPAP 5 PS10. PT TOLERATING WELL, WILL MONITOR RN AWARE. Addendum: 01/02/23 at 1211 by Dinorah Diaz RT Amended: Links added.
[2023-01-02] MEDS: PROPOFOL DRIP 100 ML IV PRN ×3 (14:08→14:28)
--- NOTE | 2023-01-02 19:30 | NUR ---
Pt report received. Pt sedated, Vent settings: A/C, 16, 500, 30%, 5. OGT with Vital AF 1.2. at 50 mL/hr. Triple Lumen RIJ Central Line patent and secure with Dobutamine at 4 mcg/kg/min, Propofol at 15 mcg/kg/min, Dopamine at 15 mcg/kg/min, and NS at KVO. F/C draining ginger urine. Weeping noted to LOLLY. Bilat soft wrist restraints in place. VSS, NAD.
[2023-01-03] VITALS (32 sets, daily range): BP systolic 92–127
[2023-01-03] MEDS: PROPOFOL DRIP 100 ML IV PRN ×2 (03:21→16:59)
--- NOTE | 2023-01-03 07:05 | NUR ---
Pt report given to oncoming RN. MINE, MECHELLE.
--- NOTE | 2023-01-03 08:29 | NUR ---
RT NOTES 0820 PLACED PT ON CPAP 5 PS 10 TRIAL. HR56 RR21 SAT96%. RN AWARE, WILL CONT TO MONITOR. Addendum: 01/03/23 at 0830 by Dinorah Diaz RT Amended: Links added.
[2023-01-03] MEDS: MUPIROCIN 2% TOPICAL OINTMENT 22 GM NS SCH ×2 (09:00→21:17)
[2023-01-03 10:18] LABS: BASOPHILS % (AUTO) 0.3 % (0.0-2.0); EOSINOPHILS # (AUTO) 0.1 K/uL (0.0-0.4); EOSINOPHILS % (AUTO) 1.5 % (0.0-4.0); HEMATOCRIT 38.3 % (36-54); HEMOGLOBIN 12.7 g/dL (14.0-18.0); LYMPHOCYTES # (AUTO) 0.4 K/uL (1.0-5.5); LYMPHOCYTES % (AUTO) 4.2 % (20.5-51.5); MEAN CORPUSCULAR HEMOGLOBIN 31 pg (27-31); MEAN CORPUSCULAR HGB CONC 33 % (32-36); MEAN CORPUSCULAR VOLUME 92 fL (79.0-98.0); MONOCYTES # (AUTO) 0.6 K/uL (0.0-1.0); MONOCYTES % (AUTO) 7.1 % (1.7-9.3); NEUTROPHILS # (AUTO) 7.9 K/uL (1.8-7.7); NEUTROPHILS % (AUTO) 86.9 % (40.0-70.0); PLATELET COUNT (AUTO) 107 K/uL (130-430); RED BLOOD CELL COUNT(AUTO) 4.15 MIL/uL (4.2-6.2); RED CELL DISTRIBUTION WIDTH 18.9 % (9.0-15.0); WHITE BLOOD COUNT (AUTO) 9.1 K/uL (4.8-10.8)
[2023-01-03 10:37] LABS: ANION GAP 7 (5-15); CALCIUM 7.4 mg/dL (8.4-11.0); CHLORIDE 105 mmol/L (98-107); GLUCOSE 151 mg/dL (70-99); UREA NITROGEN, BLOOD 35 mg/dL (8-21)
[2023-01-03 10:43] LABS: ALANINE AMINOTRANSFERASE 169 U/L (12-78); ALBUMIN 1.7 g/dL (3.4-4.8); ASPARTATE AMINOTRANSFERASE 38 U/L (10-37); TOTAL BILIRUBIN 1.4 mg/dL (0.0-1.0)
[2023-01-03] MEDS: POTASSIUM CHLORIDE 20 MEQ TAB.PRT.SR PO PRN (10:58)
[2023-01-03] MEDS: cefTRIAXone 1 GM in D5W 50 ML IV SCH (11:01)
[2023-01-03] MEDS: HEPARIN SODIUM,PORCINE 5,000 UNITS/ML VIAL SUBCUT SCH ×2 (11:05→21:20)
[2023-01-03] MEDS: DOPamine PREMIX 250 ML IV PRN ×2 (16:51→21:18)
[2023-01-04] VITALS (35 sets, daily range): BP systolic 101–122
[2023-01-04] MEDS: DOPamine PREMIX 250 ML IV PRN ×5 (03:08→20:55)
[2023-01-04] MEDS: PROPOFOL DRIP 100 ML IV PRN ×3 (03:12→23:36)
[2023-01-04 05:43] LABS: BASOPHILS % (AUTO) 0.2 % (0.0-2.0); EOSINOPHILS # (AUTO) 0.2 K/uL (0.0-0.4); EOSINOPHILS % (AUTO) 2.3 % (0.0-4.0); HEMATOCRIT 38.2 % (36-54); HEMOGLOBIN 12.9 g/dL (14.0-18.0); LYMPHOCYTES # (AUTO) 0.4 K/uL (1.0-5.5); LYMPHOCYTES % (AUTO) 5.1 % (20.5-51.5); MEAN CORPUSCULAR HEMOGLOBIN 31 pg (27-31); MEAN CORPUSCULAR HGB CONC 34 % (32-36); MEAN CORPUSCULAR VOLUME 91 fL (79.0-98.0); MONOCYTES # (AUTO) 0.5 K/uL (0.0-1.0); MONOCYTES % (AUTO) 6.3 % (1.7-9.3); NEUTROPHILS # (AUTO) 7.5 K/uL (1.8-7.7); NEUTROPHILS % (AUTO) 86.1 % (40.0-70.0); PLATELET COUNT (AUTO) 117 K/uL (130-430); RED BLOOD CELL COUNT(AUTO) 4.19 MIL/uL (4.2-6.2); RED CELL DISTRIBUTION WIDTH 18.9 % (9.0-15.0); WHITE BLOOD COUNT (AUTO) 8.7 K/uL (4.8-10.8)
[2023-01-04 05:56] LABS: ALANINE AMINOTRANSFERASE 147 U/L (12-78); ALBUMIN 1.9 g/dL (3.4-4.8); ANION GAP 7 (5-15); ASPARTATE AMINOTRANSFERASE 34 U/L (10-37); CALCIUM 7.7 mg/dL (8.4-11.0); CHLORIDE 102 mmol/L (98-107); CREATININE 1.13 mg/dL (0.55-1.30); GLUCOSE 159 mg/dL (70-99); TOTAL BILIRUBIN 1.4 mg/dL (0.0-1.0); UREA NITROGEN, BLOOD 31 mg/dL (8-21)
--- NOTE | 2023-01-04 07:15 | NUR ---
Pt report given to oncoming RN. MINE, MECHELLE.
--- NOTE | 2023-01-04 07:40 | NUR ---
Pt report received. Pt sedated ON PROP AT 25 MCG/KG/MIN, Vent settings: A/C, 16, 500, 30%, 5. OGT with Vital AF 1.2. at 50 mL/hr TOLERATING WELL. Triple Lumen RIJ Central Line patent and secure with Dobutamine at 18 mcg/kg/min, Propofol at 25 mcg/kg/min, Dopamine at 20 mcg/kg/min, and NS at KVO. F/C draining ginger urine. Weeping noted to LOLLY. Bilat soft wrist restraints in place. VSS, NAD.
[2023-01-04] MEDS: THEOPHYLLINE ANHYDROUS 200 MG CAP.ER.24H PO SCH ×2 (09:02→20:53)
[2023-01-04] MEDS: cefTRIAXone 1 GM in D5W 50 ML IV SCH (09:03)
[2023-01-04] MEDS: FUROSEMIDE 20 MG/2 ML VIAL IVP SCH ×2 (09:07→20:55)
[2023-01-04] MEDS: HEPARIN SODIUM,PORCINE 5,000 UNITS/ML VIAL SUBCUT SCH ×2 (09:09→20:53)
--- NOTE | 2023-01-04 17:08 | NUR ---
PT COMPLETED CPAP 10/5 30% FROM 2269-3587 (2 HRS) AND TOLERATED WELL. HE WAS OFF SEDATION DURING CPAP AND NOW I RESUMED HIS PROP AT 15MCG/KG/MIN WITH RSS AT -2.
--- NOTE | 2023-01-04 19:15 | NUR ---
Opening notes Received report from endorsing morning RN for continuity of care. Patient is lying in bed with IVF NS @ TKO, propofol @ 15 mcg/kg/min, dopamine @ 20 mcg/kg/min, and dobutamine @ 18 mcg/kg/min. Patients' vital signs blood pressure 119/54, heart rate 60, respirations 17, and SPO2 97% on ventilator. Ventilator settings AC 16, tidal volume 500, FIO2 30%, and peep of 5. OGT is in placed with vital AF 1.2 @ 50 mL/hr. Fernández catheter is in place draining to gravity. Bed is locked and in lowest position, fall and safety precautions is in place.
[2023-01-05] VITALS (35 sets, daily range): BP systolic 100–132
[2023-01-05] MEDS: DOPamine PREMIX 250 ML IV PRN ×5 (01:45→19:42)
[2023-01-05] MEDS ORDERED: DOPamine PREMIX 250 ML IV ONE (03:07)
[2023-01-05 05:42] LABS: ALANINE AMINOTRANSFERASE 129 U/L (12-78); ANION GAP 8 (5-15); ASPARTATE AMINOTRANSFERASE 37 U/L (10-37); CALCIUM 7.7 mg/dL (8.4-11.0); CHLORIDE 99 mmol/L (98-107); GLUCOSE 123 mg/dL (70-99); TOTAL BILIRUBIN 1.1 mg/dL (0.0-1.0); UREA NITROGEN, BLOOD 33 mg/dL (8-21)
--- NOTE | 2023-01-05 07:35 | NUR ---
Received report from endorsing ANA LILIA RN. Patient is lying in bed, awake, with IVF NS @ TKO, propofol @ 15 mcg/kg/min, dopamine @ 20 mcg/kg/min, and dobutamine @ 18 mcg/kg/min. Patients' vital signs blood pressure 120/41, heart rate 57, respirations 17, and SPO2 96% on ventilator. Ventilator settings AC 16, tidal volume 500, FIO2 30%, and peep of 5. OGT is in placed with vital AF 1.2 @ 50 mL/hr. Fernández catheter is in place draining to gravity. Sodium this morning is at 132, dr miramontes aware with no new orders at this time. Bed is locked and in lowest position, fall and safety precautions is in place. 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 Will continue to monitor closely
[2023-01-05 07:52] LABS: BASOPHILS % (AUTO) 0.3 % (0.0-2.0); EOSINOPHILS # (AUTO) 0.2 K/uL (0.0-0.4); EOSINOPHILS % (AUTO) 2.1 % (0.0-4.0); HEMATOCRIT 35.9 % (36-54); HEMOGLOBIN 12.1 g/dL (14.0-18.0); LYMPHOCYTES # (AUTO) 0.5 K/uL (1.0-5.5); LYMPHOCYTES % (AUTO) 4.6 % (20.5-51.5); MEAN CORPUSCULAR HEMOGLOBIN 31 pg (27-31); MEAN CORPUSCULAR HGB CONC 34 % (32-36); MEAN CORPUSCULAR VOLUME 92 fL (79.0-98.0); MONOCYTES # (AUTO) 0.7 K/uL (0.0-1.0); MONOCYTES % (AUTO) 7.6 % (1.7-9.3); NEUTROPHILS # (AUTO) 8.4 K/uL (1.8-7.7); NEUTROPHILS % (AUTO) 85.4 % (40.0-70.0); PLATELET COUNT (AUTO) 144 K/uL (130-430); RED BLOOD CELL COUNT(AUTO) 3.93 MIL/uL (4.2-6.2); WHITE BLOOD COUNT (AUTO) 9.9 K/uL (4.8-10.8)
--- NOTE | 2023-01-05 08:05 | NUR ---
RT NOTES start cpap coordinated with RN, vent do CPAP 5 PS 10 per daily SBT. No adverse reactions noted. Will monitor pt. Pt did not open eyes when asked, but is moving head and feet.
--- NOTE | 2023-01-05 09:04 | NUR ---
RT NOTES end CPAP Dr Mary montenegro, asked to switch vent back to AC per tachypnea and ordered to try again later. Pt's son at bedside.
[2023-01-05] MEDS: PROPOFOL DRIP 100 ML IV PRN (09:56)
[2023-01-05] MEDS: HEPARIN SODIUM,PORCINE 5,000 UNITS/ML VIAL SUBCUT SCH ×2 (09:58→20:05)
[2023-01-05] MEDS: cefTRIAXone 1 GM in D5W 50 ML IV SCH (09:59)
[2023-01-05] MEDS: THEOPHYLLINE ANHYDROUS 200 MG CAP.ER.24H PO SCH ×2 (10:00→20:05)
[2023-01-05] MEDS: FUROSEMIDE 20 MG/2 ML VIAL IVP SCH ×2 (10:02→20:05)
--- NOTE | 2023-01-05 14:07 | NUR ---
CODE STATUS CHANGED TO: INTUBATION/REINTUBATION, AND VASOPRESSORS ONLY.
--- NOTE | 2023-01-05 16:15 | NUR ---
RT NOTES start cpap per order, vent to cpap 5 ps 10, which was coordinated with RN. No immediate adverse reactions noted. will monitor pt.
--- NOTE | 2023-01-05 19:00 | NUR ---
Opening notes Received report from endorsing morning RN for continuity of care. Patient is lying in bed with IVF NS @ TKO, propofol @ 15 mcg/kg/min, dopamine @ 20 mcg/kg/min, and dobutamine @ 16 mcg/kg/min. Patients' vital signs blood pressure 120/42, heart rate 57, respirations 18, and SPO2 96% on ventilator. Ventilator settings AC 16, tidal volume 500, FIO2 30%, and peep of 5. OGT is in placed with vital AF 1.2 @ 50 mL/hr. Fernández catheter is in place draining to gravity. Bed is locked and in lowest position, fall and safety precautions is in place.
[2023-01-06] VITALS (30 sets, daily range): BP systolic 102–139
[2023-01-06] MEDS: PROPOFOL DRIP 100 ML IV PRN (00:31)
[2023-01-06] MEDS: DOPamine PREMIX 250 ML IV PRN ×4 (00:32→16:24)
[2023-01-06 05:30] LABS: BASOPHILS % (AUTO) 0.2 % (0.0-2.0); EOSINOPHILS # (AUTO) 0.1 K/uL (0.0-0.4); EOSINOPHILS % (AUTO) 1.3 % (0.0-4.0); HEMATOCRIT 35.6 % (36-54); LYMPHOCYTES # (AUTO) 0.5 K/uL (1.0-5.5); LYMPHOCYTES % (AUTO) 6.2 % (20.5-51.5); MEAN CORPUSCULAR HEMOGLOBIN 31 pg (27-31); MEAN CORPUSCULAR HGB CONC 34 % (32-36); MEAN CORPUSCULAR VOLUME 92 fL (79.0-98.0); MONOCYTES # (AUTO) 0.7 K/uL (0.0-1.0); MONOCYTES % (AUTO) 8.2 % (1.7-9.3); NEUTROPHILS # (AUTO) 7.2 K/uL (1.8-7.7); NEUTROPHILS % (AUTO) 84.1 % (40.0-70.0); PLATELET COUNT (AUTO) 153 K/uL (130-430); RED BLOOD CELL COUNT(AUTO) 3.89 MIL/uL (4.2-6.2); RED CELL DISTRIBUTION WIDTH 19.1 % (9.0-15.0); WHITE BLOOD COUNT (AUTO) 8.5 K/uL (4.8-10.8)
[2023-01-06 05:58] LABS: ALANINE AMINOTRANSFERASE 114 U/L (12-78); ANION GAP 9 (5-15); ASPARTATE AMINOTRANSFERASE 37 U/L (10-37); CALCIUM 7.8 mg/dL (8.4-11.0); CHLORIDE 97 mmol/L (98-107); CREATININE 1.14 mg/dL (0.55-1.30); GLUCOSE 140 mg/dL (70-99); TOTAL BILIRUBIN 1.1 mg/dL (0.0-1.0); UREA NITROGEN, BLOOD 31 mg/dL (8-21)
--- NOTE | 2023-01-06 07:40 | NUR ---
Opening notes Received report from endorsing NOC RN. Patient is lying in bed with IVF NS @ TKO, propofol @ 15 mcg/kg/min, dopamine @ 20 mcg/kg/min, and dobutamine @ 16 mcg/kg/min. Patients' vital signs blood pressure 128/45, heart rate 62, respirations 17, and SPO2 96% on ventilator. Ventilator settings AC 16, tidal volume 500, FIO2 30%, and peep of 5. OGT is in placed with vital AF 1.2 @ 50 mL/hr. Fernández catheter is in place draining to gravity. Bed is locked and in lowest position, fall and safety precautions is in place.
--- NOTE | 2023-01-06 07:50 | NUR ---
RT NOTES Coordinated with RN, vent to cpap 5 ps 10 per daily SBT. No immediate adverse reactions noted. Pt's eyes are open. will monitor pt.
[2023-01-06] MEDS: FUROSEMIDE 20 MG/2 ML VIAL IVP SCH ×2 (09:09→20:31)
[2023-01-06] MEDS: THEOPHYLLINE ANHYDROUS 200 MG CAP.ER.24H PO SCH ×2 (09:09→20:31)
[2023-01-06] MEDS: HEPARIN SODIUM,PORCINE 5,000 UNITS/ML VIAL SUBCUT SCH ×2 (09:12→20:31)
--- NOTE | 2023-01-06 10:15 | NUR ---
RT NOTES Pt continues to tolerate CPAP well, no distress noted. He is alert, following commands and was able to participate in weaning parameters. Son at bedside assisted due to pt is hard of hearing. RSBI 34 NIF -25.6 VC 764.6
--- NOTE | 2023-01-06 10:50 | NUR ---
RT NOTES been on CPAP for 3 hours, vent back to AC, while awaiting Mansi Hernandez's call back. Rn aware
--- NOTE | 2023-01-06 13:20 | NUR ---
RT NOTES Per Rn, no calls from Dr Hernandez yet.
--- NOTE | 2023-01-06 15:25 | NUR ---
RT NOTES Pt is awake, responding appropriately. Oral sxn was done prior to cuff deflation. Per order, pt was extubated and placed on HFNC 25L 50%. No immediate adverse reactions noted. Will monitor pt.
--- NOTE | 2023-01-06 15:25 | NUR ---
PT EXTUBATED AT 1525 WITH ME AND RT AT THE BEDSIDE. OGT REMOVED WELL. PT PLACED ON VAPOTHERM HI-FLOW AT 25L 50%. VITALS UPON EXTUBATION ARE: HR 61, BP 118/50, RR 23, O2 SATURATION 96% BREATHING E/U. PT IN A STABLE CONDITION AT THIS TIME WITH NO DISTRESS NOTED. WILL CONTINUE TO MONITOR CLOSELY
[2023-01-06] MEDS: IPRATROPIUM/ALBUTEROL SULFATE 3 ML AMPUL.NEB (DUONEB) INH SCH ×3 (15:33→22:47)
--- NOTE | 2023-01-06 17:10 | NUR ---
RT NOTES Pt cont to tolerated HFNC. Sat 96% R.R 23 H.R 67. No distress noted
--- NOTE | 2023-01-06 19:00 | NUR ---
Opening notes Received report from endorsing morning RN for continuity of care. Patient is lying in bed with IVF NS @ TKO, dopamine @ 10 mcg/kg/min, and dobutamine @ 12 mcg/kg/min. Patients' vital signs blood pressure 121/66, heart rate 82, respirations 23, and SPO2 95% on high flow nasal cannula 25L FIO2 50%. Fernández catheter is in place draining to gravity. Bed is locked and in lowest position, fall and safety precautions is in place.
--- NOTE | 2023-01-06 19:10 | NUR ---
Report given to the oncoming RN who assumed total care of the pt at this time with all questions and concerns answered
[2023-01-07] VITALS (24 sets, daily range): BP systolic 104–138
[2023-01-07] MEDS: DOPamine PREMIX 250 ML IV PRN ×2 (00:52→20:54)
[2023-01-07] MEDS: IPRATROPIUM/ALBUTEROL SULFATE 3 ML AMPUL.NEB (DUONEB) INH SCH ×6 (03:18→23:17)
[2023-01-07 06:57] LABS: ALANINE AMINOTRANSFERASE 93 U/L (12-78); ANION GAP 8 (5-15); ASPARTATE AMINOTRANSFERASE 37 U/L (10-37); CALCIUM 7.9 mg/dL (8.4-11.0); CHLORIDE 99 mmol/L (98-107); CREATININE 1.01 mg/dL (0.55-1.30); GLUCOSE 83 mg/dL (70-99); TOTAL BILIRUBIN 1.4 mg/dL (0.0-1.0); UREA NITROGEN, BLOOD 27 mg/dL (8-21)
--- NOTE | 2023-01-07 07:52 | NUR ---
rt notes 0752 titrated flow to 20L and fio2 to 45%. pt saturating 95%. will cont to monitor pt.
[2023-01-07 08:06] LABS: BASOPHILS % (AUTO) 0.3 % (0.0-2.0); EOSINOPHILS # (AUTO) 0.1 K/uL (0.0-0.4); EOSINOPHILS % (AUTO) 0.9 % (0.0-4.0); HEMATOCRIT 32.4 % (36-54); HEMOGLOBIN 10.9 g/dL (14.0-18.0); LYMPHOCYTES # (AUTO) 0.5 K/uL (1.0-5.5); MEAN CORPUSCULAR HEMOGLOBIN 31 pg (27-31); MEAN CORPUSCULAR HGB CONC 34 % (32-36); MEAN CORPUSCULAR VOLUME 93 fL (79.0-98.0); MONOCYTES # (AUTO) 0.6 K/uL (0.0-1.0); MONOCYTES % (AUTO) 8.7 % (1.7-9.3); NEUTROPHILS # (AUTO) 6.3 K/uL (1.8-7.7); NEUTROPHILS % (AUTO) 84.1 % (40.0-70.0); PLATELET COUNT (AUTO) 184 K/uL (130-430); RED CELL DISTRIBUTION WIDTH 19.5 % (9.0-15.0); WHITE BLOOD COUNT (AUTO) 7.5 K/uL (4.8-10.8)
[2023-01-07] MEDS: THEOPHYLLINE ANHYDROUS 200 MG CAP.ER.24H PO SCH ×2 (09:00→20:54)
--- NOTE | 2023-01-07 11:30 | NUR ---
rt notes 1130 titrated fio2 to 40%. pt saturating 96%. will cont to monitor pt.
[2023-01-07] MEDS: FUROSEMIDE 20 MG/2 ML VIAL IVP SCH ×2 (12:10→20:53)
[2023-01-07] MEDS: HEPARIN SODIUM,PORCINE 5,000 UNITS/ML VIAL SUBCUT SCH ×2 (12:13→20:52)
--- NOTE | 2023-01-07 15:29 | NUR ---
rt notes 1529 titrated fio2 to 35%. pt saturating 96%. will cont to monitor pt.
--- NOTE | 2023-01-07 17:00 | NUR ---
Dietitian Recommendations * ST swal. eval. for thorough assessment of safety of PO diet prior to diet advancement. LP, MS, RD Please refer to Nutrition F/U for details.
--- NOTE | 2023-01-07 17:00 | NUR ---
Nutrition F/U Radiation Control Specialist reviewed pts current EMR including diet hx, physician notes, nursing notes, pertinent labs/meds/procedures, care trends and care activity. Admitting Diagnosis Respiratory Failure, NSTEMI PMH: per H&P: He has history of coronary artery disease along with CHF and hypertension. He is on multiple cardiac meds. He has a history of coronary artery bypass graft as well. He was found to be severely bradycardic and unable to protect his airway and he was intubated. He was also found to have sepsis and is in septic shock as well. Initial workup significant for aspiration PNA, moderate malnutrition w/ albumin of 3.2 (however, albumin is not a reliable source of malnutrition). Pt also found w/ ENDER. Pt also found to have liver cirrhosis, hyperK+, hypoNa, dehydration I/O: 1618mL/3050mL (1432mL) Subjective Information: Radiation Control Specialist attended ICU rounds this morning. RN (Deangelo) stated that pt is extubated as of yesterday at 1500. TF order is still active, but RN said currently, pt is not receiving the TF d/t pending swal. eval for today. DI spoke w/ pt at bedside. Pt was able to talk but it was difficult to make out some of the words he was saying. Current Diet Order/Nutrition Support: Vital AF 1.2 at 50 ml/hr, Free Water Flush: 100mL q8h via OGT x 5 days Pertinent Medications: Lasix, K-Dur, Zofran Pertinent Labs: WBC 7.5WNL, Na 133L (trending down), BUN 27H (trending down), Bili 1.4H (trending down), ALT 93H (trending down) Height (Feet) 5 feet Height (Inches) 10.00 inches Weight (Pounds) 163 pounds (Stable since 12/30) Patient Weight 73.936 kg Body Mass Index 23.39 kg/m2 %IBW 99 [place]/Adjusted Body Weight 166#/ 75 kg Recent Weight Change No - per RN screen Weight Status Appropriate Food Allergies Unable to assess Usual Diet At Home Regular per RN screen Skin Integrity Comment: Bib: 12 Wounds: ecchymosis on L arm, bilat knees; dry scab on R arm; skin tear and erythema on posterior buttocks Edema: bilat hand 2+ pitting; bilat. Foot 1+ pitting Current % PO NPO Estimated Energy Expenditure (kcals/day) 8925-4875 (25-30 kcal/kg CBW [74kg] d/t sepsis, GERIAT maintenance) Estimated Protein Required (g/day) 59-89 (0.8-1.2 g/kg CBW d/t sepsis, ENDER [improving] GERIAT maintenance) Estimated Fluid Required (l/day) Refer to MD (CHF) Problem/Etiology/Signs/Symptoms *MODIFIED* * Swallowing/chewing difficulty R/T respiratory failure AEB pt recently extubated (*New). * Inadequate oral intake R/T diet order AEB no diet order since 12/28 (*No longer applicable). Expected Outcomes/Goals * Monitor appetite and PO intakes w/ goal of pt meeting >75% of estimated nutritional needs, nutrition-related labs trending WNL, skin integrity w/ wt. Maintenance. Dietitian Recommendations * ST swal. eval. for thorough assessment of safety of PO diet prior to diet advancement. Follow Up High Risk: F/U in 2-3 days LP, MS, RD
--- NOTE | 2023-01-07 18:02 | NUR ---
ST EVALUATION COMPLETED. ST TX NOT INDICATED AT THIS TIME. RECOMMEND PO DIET OF PUREE AND NECTAR THICK LIQUIDS. 1:1 FEEDER AND FULL ASPIRATION PRECAUTIONS.
--- NOTE | 2023-01-07 19:15 | NUR ---
Opening notes Received report from endorsing morning RN for continuity of care. Patient is lying in bed with IVF NS @ TKO, dopamine @ 5 mcg/kg/min, and dobutamine @ 2 mcg/kg/min. Patients' vital signs blood pressure 126/62, heart rate 67, respirations 19, and SPO2 95% on high flow nasal cannula 20L FIO2 35%. Fernández catheter is in place draining to gravity. Bed is locked and in lowest position, fall and safety precautions is in place.
[2023-01-08] VITALS (23 sets, daily range): BP systolic 92–142
[2023-01-08] MEDS: IPRATROPIUM/ALBUTEROL SULFATE 3 ML AMPUL.NEB (DUONEB) INH SCH ×6 (03:47→23:21)
[2023-01-08 05:42] LABS: BASOPHILS % (AUTO) 0.4 % (0.0-2.0); EOSINOPHILS # (AUTO) 0.1 K/uL (0.0-0.4); HEMATOCRIT 35.6 % (36-54); HEMOGLOBIN 11.9 g/dL (14.0-18.0); LYMPHOCYTES # (AUTO) 0.5 K/uL (1.0-5.5); LYMPHOCYTES % (AUTO) 6.6 % (20.5-51.5); MEAN CORPUSCULAR HEMOGLOBIN 31 pg (27-31); MEAN CORPUSCULAR HGB CONC 33 % (32-36); MEAN CORPUSCULAR VOLUME 93 fL (79.0-98.0); MONOCYTES # (AUTO) 0.6 K/uL (0.0-1.0); MONOCYTES % (AUTO) 7.6 % (1.7-9.3); NEUTROPHILS # (AUTO) 6.8 K/uL (1.8-7.7); NEUTROPHILS % (AUTO) 84.4 % (40.0-70.0); PLATELET COUNT (AUTO) 223 K/uL (130-430); RED BLOOD CELL COUNT(AUTO) 3.83 MIL/uL (4.2-6.2); RED CELL DISTRIBUTION WIDTH 18.6 % (9.0-15.0); WHITE BLOOD COUNT (AUTO) 8.1 K/uL (4.8-10.8)
[2023-01-08 06:12] LABS: ALANINE AMINOTRANSFERASE 93 U/L (12-78); ALBUMIN 2.3 g/dL (3.4-4.8); ANION GAP 7 (5-15); ASPARTATE AMINOTRANSFERASE 40 U/L (10-37); CALCIUM 8.3 mg/dL (8.4-11.0); CHLORIDE 99 mmol/L (98-107); CREATININE 0.97 mg/dL (0.55-1.30); GLUCOSE 83 mg/dL (70-99); PHOSPHORUS 3.3 mg/dL (2.7-4.5); TOTAL BILIRUBIN 1.5 mg/dL (0.0-1.0); UREA NITROGEN, BLOOD 27 mg/dL (8-21)
--- NOTE | 2023-01-08 07:17 | NUR ---
rt notes 0717 Titrated flow to 15L and 30% fio2. Pt saturating 95%. no distress noted.
--- NOTE | 2023-01-08 08:50 | NUR ---
CALLED DR. ORDAZ [facility] AND LEFT MESSAGE TO PLEASE RETURN THE CALL TO [phone] FOR THE ICU DEPARTMENT FOR THE PATIENT REGARDING ORDERS CLARIFICATION.
[2023-01-08] MEDS: THEOPHYLLINE ANHYDROUS 200 MG CAP.ER.24H PO SCH ×2 (09:00→21:00)
--- NOTE | 2023-01-08 11:50 | NUR ---
SPOKE WITH ROCIO AT [employer] REQUESTING CALL BACK FROM DR. ORDAZ. SPOKE WITH RN IMMEDIATELY FOR ORDER CLARIFICATION.
--- NOTE | 2023-01-08 15:46 | NUR ---
PHYSICAL THERAPY CO-SIGN The Physical Therapy Progress Notes documented by Senior Health Physics Technician have been reviewed. Reviewed/Co-Signed by: Simeon Roberts Documentation Done by:ROSA ENRIQUEZ Addendum: 01/08/23 at 1546 by Simeon Roberts PT Amended: Links added.
[2023-01-08] MEDS: FUROSEMIDE 20 MG/2 ML VIAL IVP SCH ×2 (17:10→21:00)
[2023-01-08] MEDS: HEPARIN SODIUM,PORCINE 5,000 UNITS/ML VIAL SUBCUT SCH ×2 (17:16→21:00)
--- NOTE | 2023-01-08 20:00 | NUR ---
RECEIVED PATIENT IN BED , A/O X2 ,ON HI-FLOW O2 50 L AND LGV302%, WITH O2 SAT 94%, ON DOPAMINE DRIP 2MCG/KG/MIN INFUSING AT RIGHT IJ , SITE IS CLEAN AND DRY, SENA CATH IN PLACE AND DRAIN TO GRAVITY WITH YELLOW URINE IN BAG, EXCORIATION AT BOTH EXTREMITIES. SOME OOZING FROM BOTH UPPER ARM . A -FIB ON THE MONITOR. WILL CONTINUE TO MONITOR.
[2023-01-09] VITALS (25 sets, daily range): BP systolic 97–131
--- NOTE | 2023-01-09 | NUR ---
PATIENT IS ON HEPARIN , NO S/S OF BLEEDING NOTED.
--- NOTE | 2023-01-09 03:09 | NUR ---
BED BATH AND CHG BATH GIVEN , CHANGED ALL LINEN AND GOWN, PERINEA CARE, SENA CARRE AND ORAL HYGENE PROVIDED. WILL CONTINUE TO MONITOR.
[2023-01-09] MEDS: IPRATROPIUM/ALBUTEROL SULFATE 3 ML AMPUL.NEB (DUONEB) INH SCH ×6 (03:30→23:15)
[2023-01-09 05:21] LABS: BASOPHILS % (AUTO) 0.3 % (0.0-2.0); EOSINOPHILS # (AUTO) 0.1 K/uL (0.0-0.4); EOSINOPHILS % (AUTO) 0.6 % (0.0-4.0); HEMATOCRIT 33.5 % (36-54); HEMOGLOBIN 11.3 g/dL (14.0-18.0); LYMPHOCYTES # (AUTO) 0.5 K/uL (1.0-5.5); LYMPHOCYTES % (AUTO) 5.9 % (20.5-51.5); MEAN CORPUSCULAR HEMOGLOBIN 31 pg (27-31); MEAN CORPUSCULAR HGB CONC 34 % (32-36); MEAN CORPUSCULAR VOLUME 93 fL (79.0-98.0); MONOCYTES # (AUTO) 0.7 K/uL (0.0-1.0); MONOCYTES % (AUTO) 8.1 % (1.7-9.3); NEUTROPHILS # (AUTO) 7.6 K/uL (1.8-7.7); NEUTROPHILS % (AUTO) 85.1 % (40.0-70.0); PLATELET COUNT (AUTO) 256 K/uL (130-430); RED BLOOD CELL COUNT(AUTO) 3.62 MIL/uL (4.2-6.2); RED CELL DISTRIBUTION WIDTH 18.5 % (9.0-15.0)
[2023-01-09 06:00] LABS: ALANINE AMINOTRANSFERASE 76 U/L (12-78); ALBUMIN 2.2 g/dL (3.4-4.8); ANION GAP 6 (5-15); ASPARTATE AMINOTRANSFERASE 33 U/L (10-37); CALCIUM 8.3 mg/dL (8.4-11.0); CHLORIDE 101 mmol/L (98-107); CREATININE 0.91 mg/dL (0.55-1.30); GLUCOSE 87 mg/dL (70-99); PHOSPHORUS 3.1 mg/dL (2.7-4.5); TOTAL BILIRUBIN 1.4 mg/dL (0.0-1.0); UREA NITROGEN, BLOOD 27 mg/dL (8-21)
[2023-01-09] MEDS: FUROSEMIDE 20 MG/2 ML VIAL IVP SCH ×2 (07:46→20:38)
[2023-01-09] MEDS: THEOPHYLLINE ANHYDROUS 200 MG CAP.ER.24H PO SCH ×3 (07:46→20:38)
[2023-01-09] MEDS: HEPARIN SODIUM,PORCINE 5,000 UNITS/ML VIAL SUBCUT SCH ×2 (07:47→20:40)
--- NOTE | 2023-01-09 17:10 | NUR ---
Nutrition F/U Assistant Manager Bilingual reviewed pts current EMR including diet hx, physician notes, nursing notes, pertinent labs/meds/procedures, care trends and care activity. Admitting Diagnosis Respiratory Failure, NSTEMI PMH: per H&P: He has history of coronary artery disease along with CHF and hypertension. He is on multiple cardiac meds. He has a history of coronary artery bypass graft as well. He was found to be severely bradycardic and unable to protect his airway and he was intubated. He was also found to have sepsis and is in septic shock as well. Initial workup significant for aspiration PNA, moderate malnutrition w/ albumin of 3.2 (however, albumin is not a reliable source of malnutrition). Pt also found w/ ENDER. Pt also found to have liver cirrhosis, hyperK+, hypoNa, dehydration 01/07: CXR reviewed, moderate L pleural effusion. US chest pending. L thoracentesis order. Pt off Abx. 01/07 [address] swal. eval. passed pt on Puree, NTL, 1:1 feed w/ aspiration precautions. ST spoke w/ DI about pt being able to swallow thin liquids. However, pt doesnt want to drink a lot of fluids (d/t possible CHF), so ST put him on NTL. I/O: 820mL/1800mL (-980mL) Subjective Information: Assistant Manager Bilingual spoke w/ chargemaster analyst (Zhou) and mentioned about pt not wanting to drink his fluids. RN stated fluid restriction was d/t pts preference, not MD order. RN doesnt want to put any more restrictions to pts diet order because of his recent diet upgrade from TF to puree. RN reported that pt will downgrade to MST soon, so fluid restriction and possible diet advancement may be appropriate for pt then. Current Diet Order/Nutrition Support: Puree, NTL x 2 days Pertinent Medications: Lasix, K-Dur, Zofran, Heparin Pertinent Labs: WBC 79.0WNL, Na 136L (trending down), BUN 27H (trending down), Alb 76WNL, Alb 2.2L (trending up). Height (Feet) 5 feet Height (Inches) 10.00 inches Weight (Pounds) 163 pounds (Stable since 12/30) Patient Weight 73.936 kg Body Mass Index 23.39 kg/m2 %IBW 99 [place]/Adjusted Body Weight 166#/ 75 kg Recent Weight Change No - per RN screen Weight Status Appropriate Food Allergies Unable to assess Usual Diet At Home Regular per RN screen Skin Integrity Comment: Bib: 11 Wounds: ecchymosis on L arm, bilat knees; dry scab on R arm; skin tear and erythema on posterior buttocks Edema: bilat hand 2+ pitting; bilat. Foot 1+ pitting Current % PO Poor, avg 58% x 3 meals w/ max. assistance Estimated Energy Expenditure (kcals/day) 6495-6370 (25-30 kcal/kg CBW [74kg] d/t sepsis, GERIAT maintenance) Estimated Protein Required (g/day) 74-104 (1-1.4 g/kg CBW d/t sepsis, ENDER [seemingly improving] GERIAT maintenance) Estimated Fluid Required (l/day) Refer to MD (CHF) Problem/Etiology/Signs/Symptoms *MODIFIED* * Inadequate oral intake R/T suspected lack of appetite AEB suboptimal PO intakes (*New). * Swallowing/chewing difficulty R/T respiratory failure AEB pt recently extubated (*Resolved). * Inadequate oral intake R/T diet order AEB no diet order since 12/28 (*No longer applicable). Expected Outcomes/Goals * Monitor appetite and PO intakes w/ goal of pt meeting >75% of estimated nutritional needs, nutrition-related labs trending WNL, skin integrity w/ wt. Maintenance. Dietitian Recommendations * Puree, NTL, Ensure TID, Rick BID (Supplements provide 1230 kcals and 65 g PRO per day). * Consider repeat ST swal. eval. For possible diet advancement and fluid monitoring s/p MST downgrade. * Encourage good PO intakes. Follow Up High Risk: F/U in 2-3 days LP, MS, RD
--- NOTE | 2023-01-09 17:11 | NUR ---
Dietitian Recommendations * Puree, NTL, Ensure TID, Rick BID (Supplements provide 1230 kcals and 65 g PRO per day). * Consider repeat ST swal. eval. For possible diet advancement and fluid monitoring s/p MST downgrade. * Encourage good PO intakes. LP, MS, RD Please refer to Nutrition F/U for details.
--- NOTE | 2023-01-09 18:00 | NUR ---
END OF SHIFT SUMMARY: Patient was stable throughout shift. Patient was visited by son in the early AM and son met with Dr. Perry regarding cardiac issues. Patient has been more alert today and has spent time with this RN while patient was attempting to eat and attempting to move about. Physical therapy came and worked with patient today and patient was interactive with RN when in the room with patient. However, when patient was alone he spent mot of the day sleeping. Patient was off vasopressors for first 6 hours of shift but heart rate began to decrease consistently into at bradycardiac "48" rate every 5-10 minutes. Placed patient back on dopamine at 2 mcg/kg/min. Dr. Gallego was made aware. Otherwise patient had a stable day with no major isssues throughout the shift.
--- NOTE | 2023-01-09 19:30 | NUR ---
Opening note Report received from day shift nurse. Patient currently running dopamine@ 2mcg/kg/min. Patient awake, alert, and following commands. No signs or symptoms of distress. Will continue to monitor.
[2023-01-09] MEDS: POTASSIUM CHLORIDE 20 MEQ TAB.PRT.SR PO PRN (20:40)
[2023-01-09] MEDS: DOPamine PREMIX 250 ML IV PRN (20:42)
[2023-01-10] VITALS (27 sets, daily range): BP systolic 99–138
[2023-01-10] MEDS: IPRATROPIUM/ALBUTEROL SULFATE 3 ML AMPUL.NEB (DUONEB) INH SCH ×6 (03:04→22:56)
[2023-01-10] MEDS: FUROSEMIDE 20 MG/2 ML VIAL IVP SCH ×2 (08:28→20:57)
[2023-01-10] MEDS: THEOPHYLLINE ANHYDROUS 200 MG CAP.ER.24H PO SCH ×3 (08:28→20:56)
[2023-01-10] MEDS: HEPARIN SODIUM,PORCINE 5,000 UNITS/ML VIAL SUBCUT SCH ×2 (08:29→21:03)
[2023-01-10] MEDS: POTASSIUM CHLORIDE 20 MEQ TAB.PRT.SR PO PRN (08:30)
[2023-01-10 09:28] LABS: ALANINE AMINOTRANSFERASE 62 U/L (12-78); ALBUMIN 2.3 g/dL (3.4-4.8); ANION GAP 6 (5-15); ASPARTATE AMINOTRANSFERASE 27 U/L (10-37); CALCIUM 8.5 mg/dL (8.4-11.0); CHLORIDE 102 mmol/L (98-107); CREATININE 0.87 mg/dL (0.55-1.30); GLUCOSE 98 mg/dL (70-99); PHOSPHORUS 2.9 mg/dL (2.7-4.5); TOTAL BILIRUBIN 1.4 mg/dL (0.0-1.0); UREA NITROGEN, BLOOD 25 mg/dL (8-21)
[2023-01-10 09:49] LABS: BASOPHILS % (AUTO) 0.4 % (0.0-2.0); EOSINOPHILS % (AUTO) 0.1 % (0.0-4.0); HEMATOCRIT 35.1 % (36-54); HEMOGLOBIN 11.9 g/dL (14.0-18.0); LYMPHOCYTES # (AUTO) 0.6 K/uL (1.0-5.5); LYMPHOCYTES % (AUTO) 6.7 % (20.5-51.5); MEAN CORPUSCULAR HEMOGLOBIN 31 pg (27-31); MEAN CORPUSCULAR HGB CONC 34 % (32-36); MEAN CORPUSCULAR VOLUME 93 fL (79.0-98.0); MONOCYTES # (AUTO) 0.8 K/uL (0.0-1.0); MONOCYTES % (AUTO) 8.6 % (1.7-9.3); NEUTROPHILS # (AUTO) 8.1 K/uL (1.8-7.7); NEUTROPHILS % (AUTO) 84.2 % (40.0-70.0); PLATELET COUNT (AUTO) 274 K/uL (130-430); RED BLOOD CELL COUNT(AUTO) 3.77 MIL/uL (4.2-6.2); WHITE BLOOD COUNT (AUTO) 9.6 K/uL (4.8-10.8)
--- NOTE | 2023-01-10 19:20 | NUR ---
RECEIVED REPORT ON PATIENT FROM ANNAMARIE DALLAS, ASSUMED CARE, AND STARTED ASSESSMENT.
--- NOTE | 2023-01-10 20:00 | NUR ---
PATIENT'S TEMPERATURE WAS 101.5. HE WAS COVERED UP WITH A THICK BLANKET. REMOVED THE BLANKET AND ONLY LEFT THE SHEET TO COVER PT. WILL CONTINUE TO MONITOR AND ASSESS FOR SAFETY AND COMFORT.
--- NOTE | 2023-01-10 22:00 | NUR ---
TURNED AND REPOSITIONED PATIENT TO THE LEFT SIDE. WILL CONTINUE TO MONITOR AND ASSESS FOR SAFETY AND COMFORT.
[2023-01-11] VITALS (14 sets, daily range): BP systolic 104–141
--- NOTE | 2023-01-11 | NUR ---
TURNED AND REPOSITIONED PATIENT TO THE SUPINE POSITION. WILL CONTINUE TO MONITOR AND ASSESS FOR SAFETY AND COMFORT.
[2023-01-11] MEDS: IPRATROPIUM/ALBUTEROL SULFATE 3 ML AMPUL.NEB (DUONEB) INH SCH ×5 (03:35→23:29)
[2023-01-11 05:38] LABS: BASOPHILS % (AUTO) 0.4 % (0.0-2.0); EOSINOPHILS % (AUTO) 0.2 % (0.0-4.0); HEMATOCRIT 33.3 % (36-54); HEMOGLOBIN 11.4 g/dL (14.0-18.0); LYMPHOCYTES # (AUTO) 0.6 K/uL (1.0-5.5); LYMPHOCYTES % (AUTO) 7.5 % (20.5-51.5); MEAN CORPUSCULAR HEMOGLOBIN 32 pg (27-31); MEAN CORPUSCULAR HGB CONC 34 % (32-36); MEAN CORPUSCULAR VOLUME 94 fL (79.0-98.0); MONOCYTES # (AUTO) 0.7 K/uL (0.0-1.0); MONOCYTES % (AUTO) 8.8 % (1.7-9.3); NEUTROPHILS # (AUTO) 6.7 K/uL (1.8-7.7); NEUTROPHILS % (AUTO) 83.1 % (40.0-70.0); PLATELET COUNT (AUTO) 283 K/uL (130-430); RED BLOOD CELL COUNT(AUTO) 3.55 MIL/uL (4.2-6.2); RED CELL DISTRIBUTION WIDTH 19.1 % (9.0-15.0)
[2023-01-11 05:58] LABS: ALANINE AMINOTRANSFERASE 56 U/L (12-78); ALBUMIN 2.1 g/dL (3.4-4.8); ANION GAP 4 (5-15); ASPARTATE AMINOTRANSFERASE 25 U/L (10-37); CALCIUM 8.6 mg/dL (8.4-11.0); CHLORIDE 104 mmol/L (98-107); CREATININE 1.05 mg/dL (0.55-1.30); GLUCOSE 117 mg/dL (70-99); PHOSPHORUS 3.3 mg/dL (2.7-4.5); TOTAL BILIRUBIN 1.3 mg/dL (0.0-1.0); UREA NITROGEN, BLOOD 27 mg/dL (8-21)
--- NOTE | 2023-01-11 06:30 | NUR ---
PATIENT'S SON, JOSÉ LUIS CALLED TOENQUIRE TO HIS FATHER'S CONDITION. ALL QUESTIONS WERE ANSWERED TO HIS SATISFACTION. MR. MARES PULLED OFF HIS HI-FLOW CANULA. HIS O2 SATS REMAINED IN THE MID NINETIES @ 94-95. HE BEGAN TO COHERENTLY SPEAK WITH ME AND EVEN TOLD ME A JOKE. WILL CONTINUE TO MONITOR AND ASSESS FOR SAFETY AND COMFORT.
[2023-01-11] MEDS: FUROSEMIDE 20 MG/2 ML VIAL IVP SCH ×2 (09:01→21:34)
[2023-01-11] MEDS: THEOPHYLLINE ANHYDROUS 200 MG CAP.ER.24H PO SCH ×3 (09:02→21:34)
[2023-01-11] MEDS: HEPARIN SODIUM,PORCINE 5,000 UNITS/ML VIAL SUBCUT SCH ×2 (09:04→21:35)
--- NOTE | 2023-01-11 11:30 | NUR ---
SBAR REPORT GIVEN TO ANNAMARIE PARSON PT TRANSFERRED TO ROOM 124A. PT ON STABLE CONDITION. WINL. NO FEVER. CONTINUED TO BE ON 02 2L PER NC.
--- NOTE | 2023-01-11 11:45 | NUR ---
Received report via SBAR from ICU nurse( Adrien DE LUNA)
--- NOTE | 2023-01-11 12:00 | NUR ---
Transfer from ICU Received patient A/Ox1/2 respiration even and unlabored, no signs of distress. Oxygen saturation 95% 2L nasal cannula. Right IJ x3 lumen patent, Fernández catheter draining ginger yellow urine to gravity, continue to safety precaution, bed in low position and call light w/in reached.
--- NOTE | 2023-01-11 12:08 | NUR ---
Referral for SNF sent to [facility]. 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
--- NOTE | 2023-01-11 12:45 | NUR ---
Spoke with LOUIS Echeverria) patient already completed Bactroban ointment for 5 days, Dr. Chakraborty aware.
--- NOTE | 2023-01-11 14:52 | NUR ---
PHYSICAL THERAPY CO-SIGN The Physical Therapy Progress Notes documented by Director Of Graduate Medical Education have been reviewed. Reviewed/Co-Signed by: Simeon Roberts Documentation Done by:MARIA ESTHER SELBY Addendum: 01/11/23 at 1452 by Simeon Roberts PT Amended: Links added.
--- NOTE | 2023-01-11 15:25 | NUR ---
Jose marr/ Kj Jones is working on SNF placement [phone].
--- NOTE | 2023-01-11 18:46 | NUR ---
Closing Patient awake A/Ox2, respiration even/ unlabored, no signs of SOB/distress, oxygen saturation 98% on 3L nasal cannula, IJ intact/patent, Fernández catheter draining ginger color urine. Need assistance with feeedings, tolerated 40% of meal. Continue to maintain safety precaution, will endorse to oncoming nurse
--- NOTE | 2023-01-11 19:30 | NUR ---
OPENING NOTES Patient resting in bed - no s/s pain or distress noted. Respirations even and unlabored - head of bed elevated 3L NC. IV site patent no s/s redness, infection, or infiltration. Bed locked and in lowest position. Call light within reach bed alarm on.
[2023-01-12 00:59] VITALS: BP_SYST 136
--- NOTE | 2023-01-12 05:13 | NUR ---
patient rips out rij line pt cleaned linens changed bleeding stopped
[2023-01-12 06:25] LABS: BASOPHILS % (AUTO) 0.5 % (0.0-2.0); EOSINOPHILS # (AUTO) 0.1 K/uL (0.0-0.4); EOSINOPHILS % (AUTO) 0.6 % (0.0-4.0); HEMATOCRIT 37.3 % (36-54); HEMOGLOBIN 12.4 g/dL (14.0-18.0); LYMPHOCYTES # (AUTO) 0.6 K/uL (1.0-5.5); LYMPHOCYTES % (AUTO) 6.3 % (20.5-51.5); MEAN CORPUSCULAR HEMOGLOBIN 31 pg (27-31); MEAN CORPUSCULAR HGB CONC 33 % (32-36); MEAN CORPUSCULAR VOLUME 94 fL (79.0-98.0); MONOCYTES # (AUTO) 0.7 K/uL (0.0-1.0); MONOCYTES % (AUTO) 7.6 % (1.7-9.3); NEUTROPHILS # (AUTO) 7.4 K/uL (1.8-7.7); PLATELET COUNT (AUTO) 307 K/uL (130-430); RED BLOOD CELL COUNT(AUTO) 3.95 MIL/uL (4.2-6.2); RED CELL DISTRIBUTION WIDTH 18.6 % (9.0-15.0); WHITE BLOOD COUNT (AUTO) 8.7 K/uL (4.8-10.8)
[2023-01-12 06:54] LABS: ANION GAP 8 (5-15); CHLORIDE 104 mmol/L (98-107); CREATININE 0.89 mg/dL (0.55-1.30); GLUCOSE 107 mg/dL (70-99); UREA NITROGEN, BLOOD 25 mg/dL (8-21)
[2023-01-12] MEDS: IPRATROPIUM/ALBUTEROL SULFATE 3 ML AMPUL.NEB (DUONEB) INH SCH ×5 (07:07→23:28)
--- NOTE | 2023-01-12 07:16 | NUR ---
CLOSING NOTES Patient resting in bed - no s/s pain or distress noted. Respirations even and unlabored - head of bed elevated 3L NC. IV site patent no s/s redness, infection, or infiltration. Bed locked and in lowest position. Call light within reach bed alarm on. informed dr. litzy SIFUENTES central line ripped out by patient. orders chest xray and to insert peripheral IV Addendum: 01/12/23 at 0719 by Aniket Montanez RN correction: iv site not patent as no IV in place at this time.
--- NOTE | 2023-01-12 07:20 | NUR ---
Initial notes Received patient A/Ox1/2 respiration even and unlabored, no signs of distress. Oxygen saturation 95% 2L nasal cannula. No IV access, Fernández catheter draining yellow urine to gravity, continue to safety precaution, bed in low position and call light w/in reached.
--- NOTE | 2023-01-12 07:45 | NUR ---
New IV access left AC #24g by NOC nurse
[2023-01-12 08:07] VITALS: BP_SYST 144
[2023-01-12 09:48] VITALS: BP_SYST 144
[2023-01-12] MEDS: THEOPHYLLINE ANHYDROUS 200 MG CAP.ER.24H PO SCH ×3 (10:00→20:24)
[2023-01-12] MEDS: FUROSEMIDE 20 MG/2 ML VIAL IVP SCH ×2 (10:01→20:38)
[2023-01-12] MEDS: HEPARIN SODIUM,PORCINE 5,000 UNITS/ML VIAL SUBCUT SCH ×2 (10:03→20:25)
--- NOTE | 2023-01-12 12:00 | NUR ---
Reposition every 2 hours, no signs of distress, safety precaution secured.
--- NOTE | 2023-01-12 14:48 | NUR ---
Pt notes for 01/12-faxed to Annie at [facility] at her request to justify SNF placement. [phone]
--- NOTE | 2023-01-12 15:03 | NUR ---
PHYSICAL THERAPY CO-SIGN The Physical Therapy Progress Notes documented by Roller Printing Supervisor have been reviewed. Reviewed/Co-Signed by: Simeon Roberts Documentation Done by:ROSA ENRIQUEZ Addendum: 01/12/23 at 1504 by Simeon Roberts PT Amended: Links added.
[2023-01-12 18:14] VITALS: BP_SYST 136
--- NOTE | 2023-01-12 18:43 | NUR ---
Closing Patient awake, no signs of distress, oxygen saturation at 94% on 2L nasal cannula. Reposition every 2 hours throughout shift, Pillow under knees for bilateral heel distribution. IV to left AC patent, continue to maintain safety precaution will endorse.
[2023-01-12 20:00] VITALS: BP_SYST 150
--- NOTE | 2023-01-12 20:00 | NUR ---
OPENING NOTES RECEIVED PATIENT BEDSIDE. PATIENT WAS ASLEEP. NO S/S OF DISTRESS OR DISCOMFORT. SAFETY CHECKS DONE AND CALL LIGHT WITHIN REACH.
--- NOTE | 2023-01-13 | NUR ---
ROUNDING NOTES PATIENT IS IN BED SLEEPING. BREATHING UNLABORED. NO DISTRESS. SAFETY CHECKS DONE. CALL LIGHT WITH IN REACH.
[2023-01-13 00:46] VITALS: BP_SYST 143
[2023-01-13] MEDS: IPRATROPIUM/ALBUTEROL SULFATE 3 ML AMPUL.NEB (DUONEB) INH SCH ×6 (03:57→23:00)
[2023-01-13] MEDS: POTASSIUM CHLORIDE 20 MEQ TAB.PRT.SR PO PRN (04:11)
[2023-01-13 06:23] LABS: BASOPHILS # (AUTO) 0.1 K/uL (0.0-0.2); BASOPHILS % (AUTO) 0.8 % (0.0-2.0); EOSINOPHILS % (AUTO) 0.6 % (0.0-4.0); HEMATOCRIT 36.4 % (36-54); LYMPHOCYTES # (AUTO) 0.7 K/uL (1.0-5.5); LYMPHOCYTES % (AUTO) 9.1 % (20.5-51.5); MEAN CORPUSCULAR HEMOGLOBIN 31 pg (27-31); MEAN CORPUSCULAR HGB CONC 33 % (32-36); MEAN CORPUSCULAR VOLUME 94 fL (79.0-98.0); MONOCYTES # (AUTO) 0.5 K/uL (0.0-1.0); MONOCYTES % (AUTO) 6.7 % (1.7-9.3); NEUTROPHILS # (AUTO) 6.3 K/uL (1.8-7.7); NEUTROPHILS % (AUTO) 82.8 % (40.0-70.0); PLATELET COUNT (AUTO) 338 K/uL (130-430); RED BLOOD CELL COUNT(AUTO) 3.85 MIL/uL (4.2-6.2); RED CELL DISTRIBUTION WIDTH 19.1 % (9.0-15.0); WHITE BLOOD COUNT (AUTO) 7.6 K/uL (4.8-10.8)
[2023-01-13 06:43] LABS: ANION GAP 7 (5-15); CALCIUM 8.8 mg/dL (8.4-11.0); CHLORIDE 104 mmol/L (98-107); CREATININE 0.81 mg/dL (0.55-1.30); GLUCOSE 106 mg/dL (70-99); UREA NITROGEN, BLOOD 31 mg/dL (8-21)
--- NOTE | 2023-01-13 07:03 | NUR ---
Closing notes Patient is asleep in bed. No s/s of distress. Safety checks done and call light with in reach.
--- NOTE | 2023-01-13 10:00 | NUR ---
CM: s/w [place] entry level business analyst/Bony: f/u on snf placement progress. Per Bony: LOUIS Wahl will call be back with the info, he emailed my contact info to Maryuri as well.
[2023-01-13] MEDS: FUROSEMIDE 20 MG/2 ML VIAL IVP SCH ×3 (10:02→22:07)
[2023-01-13] MEDS: THEOPHYLLINE ANHYDROUS 200 MG CAP.ER.24H PO SCH ×3 (10:02→20:26)
[2023-01-13] MEDS: HEPARIN SODIUM,PORCINE 5,000 UNITS/ML VIAL SUBCUT SCH ×2 (10:03→20:24)
[2023-01-13 12:00] VITALS: BP_SYST 147
--- NOTE | 2023-01-13 13:33 | NUR ---
Nutrition F/U RD reviewed pts current EMR including diet hx, physician notes, nursing notes, pertinent labs/meds/procedures, care trends and care activity. Admitting Diagnosis Respiratory Failure, NSTEMI PMH: per H&P: He has history of coronary artery disease along with CHF and hypertension. He is on multiple cardiac meds. He has a history of coronary artery bypass graft as well. He was found to be severely bradycardic and unable to protect his airway and he was intubated. He was also found to have sepsis and is in septic shock as well. Initial workup significant for aspiration PNA, moderate malnutrition w/ albumin of 3.2 (however, albumin is not a reliable source of malnutrition). Pt also found w/ ENDER. Pt also found to have liver cirrhosis, hyperK+, hypoNa, dehydration 01/07: CXR reviewed, moderate L pleural effusion. US chest pending. L thoracentesis order. Pt off Abx. 01/07 [address] swal. eval. passed pt on Puree, NTL, 1:1 feed w/ aspiration precautions. ST spoke w/ DI about pt being able to swallow thin liquids. However, pt doesnt want to drink a lot of fluids (d/t possible CHF), so ST put him on NTL. I/O: 380mL/1600mL (-1220mL) Subjective Information: RD rounded to pt room and tried to s/w pt but was unable to communicate w/ him. He could not understand anything RD was saying even though she tried to speak loudly and clearly. RD witnessed tray table with lunch untouched. RD s/w pt RN, Coral, who attested to him eating well, though documentation shows poor intake. She reports that how much he eats depends on foods served. RN had more pressing matters to attend to so RD was unable to continue talking to her. Pt is likely not meeting nutritional needs at this time. Current Diet Order/Nutrition Support: Puree, NTL, Ensure TID, Rick BID x 4 days Pertinent Labs: Na 143 WNL, K+ 3.3 L, BUN 31H, Alb 2.1L, BG 106 H Height (Feet) 5 feet Height (Inches) 10.00 inches Weight (Pounds) 163 pounds (Stable since 12/30) Patient Weight 73.936 kg Body Mass Index 23.39 kg/m2 Skin Integrity Comment: Bib: 14 Wounds: dry scab on R arm; skin tear and erythema on posterior buttocks Edema: bilat hand 4+ pitting; bilat. Foot 2+ pitting Current % PO Poor, avg 33% x 6 meals Estimated Energy Expenditure (kcals/day) 1958-4059 (25-30 kcal/kg CBW [74kg] d/t sepsis, GERIAT maintenance) Estimated Protein Required (g/day) 74-104 (1-1.4 g/kg CBW d/t sepsis, ENDER [seemingly improving] GERIAT maintenance) Estimated Fluid Required (l/day) Refer to MD (CHF) Problem/Etiology/Signs/Symptoms * Inadequate oral intake R/T suspected lack of appetite AEB suboptimal PO intakes (*ongoing). * Swallowing/chewing difficulty R/T respiratory failure AEB pt recently extubated (*Resolved). * Inadequate oral intake R/T diet order AEB no diet order since 12/28 (*No longer applicable). Expected Outcomes/Goals * Monitor appetite and PO intakes w/ goal of pt meeting >75% of estimated nutritional needs, nutrition-related labs trending WNL, skin integrity w/ wt. Maintenance. Dietitian Recommendations * Continue Puree, NTL, Ensure TID, Rick BID (Supplements provide 1230 kcals and 65 g PRO per day). * Encourage good PO intakes. Follow Up High Risk: F/U in 2-3 days FROILAN, MPH, RD
--- NOTE | 2023-01-13 13:35 | NUR ---
Dietitian Recommendations * Continue Puree, NTL, Ensure TID, Rick BID (Supplements provide 1230 kcals and 65 g PRO per day). * Encourage good PO intakes. GS, MPH, RD Please refer to Nutrition F/U for further details. Thanks!
--- NOTE | 2023-01-13 14:30 | NUR ---
PHYSICAL THERAPY CO-SIGN The Physical Therapy Progress Notes documented by [employer] have been reviewed. Reviewed/Co-Signed by: Simeon Roberts Documentation Done by:ROSA ENRIQUEZ Addendum: 01/13/23 at 1430 by Simeon Roberts PT Amended: Links added.
[2023-01-13 16:00] VITALS: BP_SYST 145
--- NOTE | 2023-01-13 19:12 | NUR ---
awake,alert,confused and forgetful at times,vss,on O2 2L/NC on and off needs attended,call light & personal items within pt reach,side rails up bed locked in low position,safety maintained.total care provided, d/c plan to SNF when bed available as per dr order.
--- NOTE | 2023-01-13 20:00 | NUR ---
opening notes Received patient at bedside. Helped assist patient with meal. Patient shows no s/s of distress or pain at this time. Safety checks were done and call light with in reach.
[2023-01-13 21:16] VITALS: BP_SYST 119
--- NOTE | 2023-01-13 22:18 | NUR ---
New iv left forearm 24 g. Old iv removed
[2023-01-14 02:14] VITALS: BP_SYST 138
[2023-01-14] MEDS: IPRATROPIUM/ALBUTEROL SULFATE 3 ML AMPUL.NEB (DUONEB) INH SCH ×6 (03:12→23:10)
--- NOTE | 2023-01-14 07:30 | NUR ---
CLOSING Patient stable through night, no sign of distress noted. Fernández catheter in place draining to gravity. Turned and repositioned with pillow support. Call light in reach, bed low and locked, exit alarm on.
[2023-01-14 07:37] LABS: BASOPHILS # (AUTO) 0.1 K/uL (0.0-0.2); BASOPHILS % (AUTO) 0.8 % (0.0-2.0); EOSINOPHILS # (AUTO) 0.1 K/uL (0.0-0.4); EOSINOPHILS % (AUTO) 1.1 % (0.0-4.0); HEMATOCRIT 36.1 % (36-54); LYMPHOCYTES # (AUTO) 0.7 K/uL (1.0-5.5); LYMPHOCYTES % (AUTO) 9.9 % (20.5-51.5); MEAN CORPUSCULAR HEMOGLOBIN 31 pg (27-31); MEAN CORPUSCULAR HGB CONC 33 % (32-36); MEAN CORPUSCULAR VOLUME 94 fL (79.0-98.0); MONOCYTES # (AUTO) 0.6 K/uL (0.0-1.0); MONOCYTES % (AUTO) 8.2 % (1.7-9.3); NEUTROPHILS # (AUTO) 5.9 K/uL (1.8-7.7); PLATELET COUNT (AUTO) 342 K/uL (130-430); RED BLOOD CELL COUNT(AUTO) 3.85 MIL/uL (4.2-6.2); RED CELL DISTRIBUTION WIDTH 19.2 % (9.0-15.0); WHITE BLOOD COUNT (AUTO) 7.4 K/uL (4.8-10.8)
[2023-01-14 07:40] VITALS: BP_SYST 146
--- NOTE | 2023-01-14 07:40 | NUR ---
Opening Notes Patient laying in bed, resting when I went to check on him. A/O x 1/2, Cambodian speaking. Patient Breathing even and unlabored on 3LPM nasal cannula. No pain, no distress, no SOB. Patient is on a pureed diet . Patient has LFA 20G. Patient is bedbound and has a Fernández in place. Bed is locked in lowest position. Call light within reach, all needs met, will continue with plan of care.
[2023-01-14 08:00] LABS: ANION GAP 5 (5-15); CALCIUM 8.9 mg/dL (8.4-11.0); CHLORIDE 102 mmol/L (98-107); CREATININE 0.91 mg/dL (0.55-1.30); GLUCOSE 99 mg/dL (70-99); UREA NITROGEN, BLOOD 31 mg/dL (8-21)
[2023-01-14] MEDS: THEOPHYLLINE ANHYDROUS 200 MG CAP.ER.24H PO SCH ×3 (08:32→21:23)
[2023-01-14] MEDS: HEPARIN SODIUM,PORCINE 5,000 UNITS/ML VIAL SUBCUT SCH ×2 (08:33→21:25)
--- NOTE | 2023-01-14 09:32 | NUR ---
Short Nutrition Note RD s/w pt RN today and she said pt requested 2 Ensures per tray. He is only able to tolerate the Ensures and needs the calories. RD ordered 2 cans of Ensure TID for this pt. GS, MPH, RD
[2023-01-14] MEDS: FUROSEMIDE 20 MG/2 ML VIAL IVP SCH ×2 (09:53→21:26)
--- NOTE | 2023-01-14 12:00 | NUR ---
noon notes Patient laying in bed, watching TV. Patient Breathing even and unlabored on 3LPM nasal cannula. No pain, no distress, no SOB. Bed is locked in lowest position. Call light within reach, all needs met, will continue with plan of care.
[2023-01-14 12:14] LABS: HEPATITIS C VIRUS AB Negative <0.8 s/co (0.0-0.7)
[2023-01-14 12:16] VITALS: BP_SYST 139
--- NOTE | 2023-01-14 16:16 | NUR ---
4pm note Patient laying in bed, watching TV. Patient Breathing even and unlabored on 3LPM nasal cannula. No pain, no distress, no SOB. Bed is locked in lowest position. Call light within reach, all needs met, will continue with plan of care.
--- NOTE | 2023-01-14 16:26 | NUR ---
CM: s/w Alcon , risk management analyst/Kj OURS : Informed Maryuri did not call back yesterday. I f/u again for snf placement info. Per Alcon, Maryuri is the cm for today. He tried to reach her with a long wait but no response. So that , he will leave message for her to call me back waldemar.
[2023-01-14] MEDS: POTASSIUM CHLORIDE 20 MEQ TAB.PRT.SR PO PRN (16:40)
[2023-01-14 17:08] VITALS: BP_SYST 137
--- NOTE | 2023-01-14 19:44 | NUR ---
PM SHIFT ASSESSMENT PATIENT IS AWAKE BUT CONFUSED. RR EVEN AND UNLABORED. SKIN WARM AND DRY. SENA CATH IN PLACE AND DRAINING TO GRAVITY. SAFETY PRECAUTIONS IN PLACE, CALL LIGHT WITHIN REACH. WILL CONTINUE TO MONITOR.
[2023-01-14 20:40] VITALS: BP_SYST 136
[2023-01-15 01:03] VITALS: BP_SYST 129
[2023-01-15] MEDS: IPRATROPIUM/ALBUTEROL SULFATE 3 ML AMPUL.NEB (DUONEB) INH SCH ×7 (03:00→23:08)
[2023-01-15 07:21] LABS: BASOPHILS # (AUTO) 0.1 K/uL (0.0-0.2); BASOPHILS % (AUTO) 0.9 % (0.0-2.0); EOSINOPHILS # (AUTO) 0.1 K/uL (0.0-0.4); EOSINOPHILS % (AUTO) 0.8 % (0.0-4.0); HEMATOCRIT 36.8 % (36-54); HEMOGLOBIN 12.2 g/dL (14.0-18.0); LYMPHOCYTES # (AUTO) 0.8 K/uL (1.0-5.5); LYMPHOCYTES % (AUTO) 10.4 % (20.5-51.5); MEAN CORPUSCULAR HEMOGLOBIN 31 pg (27-31); MEAN CORPUSCULAR HGB CONC 33 % (32-36); MEAN CORPUSCULAR VOLUME 93 fL (79.0-98.0); MONOCYTES # (AUTO) 0.6 K/uL (0.0-1.0); MONOCYTES % (AUTO) 7.7 % (1.7-9.3); NEUTROPHILS # (AUTO) 6.3 K/uL (1.8-7.7); NEUTROPHILS % (AUTO) 80.2 % (40.0-70.0); PLATELET COUNT (AUTO) 317 K/uL (130-430); RED BLOOD CELL COUNT(AUTO) 3.94 MIL/uL (4.2-6.2); RED CELL DISTRIBUTION WIDTH 18.9 % (9.0-15.0); WHITE BLOOD COUNT (AUTO) 7.9 K/uL (4.8-10.8)
[2023-01-15 07:32] LABS: ANION GAP 5 (5-15); CALCIUM 8.9 mg/dL (8.4-11.0); CHLORIDE 103 mmol/L (98-107); CREATININE 0.85 mg/dL (0.55-1.30); GLUCOSE 100 mg/dL (70-99); UREA NITROGEN, BLOOD 29 mg/dL (8-21)
[2023-01-15 08:00] VITALS: BP_SYST 137
--- NOTE | 2023-01-15 08:00 | NUR ---
Initial Note: Patient is sleeping. awaken by voice. No pain or discomfort at this time. Bed alarm is on. Bed in the lowest position. Side rails x3 up. Call light in reach. Assessment is done and vital signs are checked. Will continue to monitor.
[2023-01-15 08:11] VITALS: BP_SYST 129
[2023-01-15] MEDS: HEPARIN SODIUM,PORCINE 5,000 UNITS/ML VIAL SUBCUT SCH ×2 (08:37→20:37)
[2023-01-15] MEDS: FUROSEMIDE 20 MG/2 ML VIAL IVP SCH ×2 (08:38→20:41)
[2023-01-15] MEDS: THEOPHYLLINE ANHYDROUS 200 MG CAP.ER.24H PO SCH ×3 (08:38→20:40)
--- NOTE | 2023-01-15 11:56 | NUR ---
Note: patient is lethargic. Open his eyes by light touching. O2 sat in room air is 93%. Apply 2L O2 via nasal cannula. Will continue to monitor.
[2023-01-15 12:00] VITALS: BP_SYST 134
--- NOTE | 2023-01-15 14:00 | NUR ---
Note: patient is sleeping in bed. No pain or discomfort at this time. Family is at the bedside.
--- NOTE | 2023-01-15 15:46 | NUR ---
PHYSICAL THERAPY CO-SIGN The Physical Therapy Progress Notes documented by Sales Support Technician have been reviewed. Reviewed/Co-Signed by: Simeon Roberts Documentation Done by:ROSA ENRIQUEZ Addendum: 01/15/23 at 1547 by Simeon Roberts PT Amended: Links added.
[2023-01-15 16:00] VITALS: BP_SYST 135
--- NOTE | 2023-01-15 16:28 | NUR ---
Note: patient is lying on bed. Bed in the lowest position. Side rails x 3 up. Call light in reach. Bed alarm is on. No signs of pain or discomfort at this time.
--- NOTE | 2023-01-15 16:30 | NUR ---
CM: Late entry: Per Rose Mary, she received call from claudia Wahl/Kj that she would call back with the transfer update.
--- NOTE | 2023-01-15 18:58 | NUR ---
Closing Note: patient is lying on bed calmly. Family at the bedside. Bed in the lowest position and side rails x3 up. Call light in reach. Bed alarm is on. No sign of pain or discomfort at this time. Will endorse timber bucker nurse to continue patient care.
[2023-01-15 20:22] VITALS: BP_SYST 151
[2023-01-16] VITALS (7 sets, daily range): BP systolic 121–141
[2023-01-16] MEDS: IPRATROPIUM/ALBUTEROL SULFATE 3 ML AMPUL.NEB (DUONEB) INH SCH ×6 (03:06→23:10)
[2023-01-16 06:36] LABS: BASOPHILS # (AUTO) 0.1 K/uL (0.0-0.2); BASOPHILS % (AUTO) 0.6 % (0.0-2.0); EOSINOPHILS % (AUTO) 0.4 % (0.0-4.0); HEMATOCRIT 35.2 % (36-54); HEMOGLOBIN 11.8 g/dL (14.0-18.0); LYMPHOCYTES # (AUTO) 0.7 K/uL (1.0-5.5); LYMPHOCYTES % (AUTO) 6.1 % (20.5-51.5); MEAN CORPUSCULAR HEMOGLOBIN 32 pg (27-31); MEAN CORPUSCULAR HGB CONC 34 % (32-36); MEAN CORPUSCULAR VOLUME 94 fL (79.0-98.0); MONOCYTES # (AUTO) 0.7 K/uL (0.0-1.0); MONOCYTES % (AUTO) 6.8 % (1.7-9.3); NEUTROPHILS # (AUTO) 9.4 K/uL (1.8-7.7); NEUTROPHILS % (AUTO) 86.1 % (40.0-70.0); PLATELET COUNT (AUTO) 318 K/uL (130-430); RED BLOOD CELL COUNT(AUTO) 3.76 MIL/uL (4.2-6.2); RED CELL DISTRIBUTION WIDTH 18.6 % (9.0-15.0); WHITE BLOOD COUNT (AUTO) 10.9 K/uL (4.8-10.8)
[2023-01-16 06:48] LABS: ANION GAP 6 (5-15); CALCIUM 8.9 mg/dL (8.4-11.0); CHLORIDE 102 mmol/L (98-107); CREATININE 0.92 mg/dL (0.55-1.30); GLUCOSE 106 mg/dL (70-99); UREA NITROGEN, BLOOD 29 mg/dL (8-21)
--- NOTE | 2023-01-16 07:06 | NUR ---
no acute distress noted overnight, pt remains stable. tolerated night Meds
--- NOTE | 2023-01-16 08:00 | NUR ---
Start of shift Pt resting in bed, pt has O2 on at 2L/nc. IV in LAC intact and patent. No SOB/resp distress or chest pain/discomfort noted. Tele unit attached and intact at this time. No needs noted at this time. Pt refuses his breakfast, assistance was provided by Dominique Nobles ([facility])
--- NOTE | 2023-01-16 09:00 | NUR ---
[facility]
[2023-01-16] MEDS: HEPARIN SODIUM,PORCINE 5,000 UNITS/ML VIAL SUBCUT SCH ×2 (09:31→21:26)
[2023-01-16] MEDS: FUROSEMIDE 20 MG/2 ML VIAL IVP SCH ×2 (09:33→21:19)
[2023-01-16] MEDS: THEOPHYLLINE ANHYDROUS 200 MG CAP.ER.24H PO SCH ×3 (10:18→21:19)
--- NOTE | 2023-01-16 10:40 | NUR ---
OPENING NOTES: RECEIVED REPORT ON PATIENT FROM DAY SHIFT NURSE. PATIENT IN BED. PHYSICAL THERAPY IDS WORKING WITH THE PATIENT. NO S/S OF DISTRESS OR PAIN REPORTED. REPLACED NASAL CANNULA ON PATIENT. BREATHING IS EVEN AND UNLABORED ON 2L NC 95%. ALL NEEDS MET AT THIS TIME ,SAFETY CHECKS MADE AND CALL LIGHT WITHIN REACH.
--- NOTE | 2023-01-16 12:20 | NUR ---
PATIENT REFUSED LUNCH, WATER AND ENSURE. REPOSITIONED PATIENT. SENA DRAINING TO GRAVITY YELLOW URINE. NO S/S OF DISTRESS OR PAIN REPORTED. REPLACED NASAL CANNULA ON PATIENT. BREATHING IS EVEN AND UNLABORED ON 2L NC 94%. ALL NEEDS MET AT THIS TIME, SAFETY CHECKS MADE AND CALL LIGHT WITHIN REACH.
--- NOTE | 2023-01-16 19:13 | NUR ---
CLOSING NOTES: PATIENT IN BED WITH EYES CLOSED. NO S/S OF DISTRESS OR PAIN REPORTED. BREATHING IS EVEN AND UNLABORED ON 2L NC 97%. ALL NEEDS MET AT THIS TIME, SAFETY CHECKS MADE AND CALL LIGHT WITHIN REACH. WILL ENDORSE TO SALES AND CUSTOMER RELATIONS REP NURSE.
[2023-01-17 00:13] VITALS: BP_SYST 159
[2023-01-17] MEDS: IPRATROPIUM/ALBUTEROL SULFATE 3 ML AMPUL.NEB (DUONEB) INH SCH ×6 (02:55→23:09)
[2023-01-17 08:00] VITALS: BP_SYST 150
--- NOTE | 2023-01-17 08:30 | NUR ---
OPENING NOTES: PATIENT IN BED WITH EYES CLOSED. RESPONDED TO NAME. NO S/S OF DISTRESS OR PAIN. REPOSITIONED FOR COMFORT. BREATHING IS EVEN AND UNLABORED ON 2L NC 93%. ALL NEEDS MET AT THIS TIME, SAFETY CHECKS MADE AND CALL LIGHT WITHIN REACH.
[2023-01-17] MEDS: THEOPHYLLINE ANHYDROUS 200 MG CAP.ER.24H PO SCH ×3 (08:39→22:29)
[2023-01-17] MEDS: HEPARIN SODIUM,PORCINE 5,000 UNITS/ML VIAL SUBCUT SCH (08:40)
[2023-01-17] MEDS: FUROSEMIDE 20 MG/2 ML VIAL IVP SCH ×2 (08:50→22:29)
[2023-01-17 12:00] VITALS: BP_SYST 157
--- NOTE | 2023-01-17 13:09 | NUR ---
Nutrition F/U RD reviewed pts current EMR including diet hx, physician notes, nursing notes, pertinent labs/meds/procedures, care trends and care activity. Admitting Diagnosis Respiratory Failure, NSTEMI PMH: per H&P: He has history of coronary artery disease along with CHF and hypertension. He is on multiple cardiac meds. He has a history of coronary artery bypass graft as well. He was found to be severely bradycardic and unable to protect his airway and he was intubated. He was also found to have sepsis and is in septic shock as well. Initial workup significant for aspiration PNA, moderate malnutrition w/ albumin of 3.2 (however, albumin is not a reliable source of malnutrition). Pt also found w/ ENDER. Per progress note (01/17/23), septic shock with UTI and possible aspiration pneumonia now resolved, episodic bradycardia, currently controlled with theophylline, Atherosclerotic heart disease with previous multivessel bypass graft surgery, Ischemic cardiomyopathy with CHF, ENDER from hypotension and sepsis. Improved, general debility, mental obtundation, most likely metabolic encephalopathy, no improving Subjective Information: RD rounded to pt room and tried to s/w pt but was unable to communicate w/ him. Patient stared at RD without responding despite RD speaking loudly and clearly. RD witnessed tray table with x3 untouched Ensures. RD s/w pt RNCharlotte, who attested to him eating slightly better this AM, patient ate all of pureed peaches, yogurt, and a few bites of the egg. RN also reports encouraging patient to take sips of Ensure occasionally. EMR shows poor intake, RN agreeable to talk to MD about considering appetite stimulant. Pt is likely not meeting nutritional needs at this time. Patient seemed thin and mild muscle wasting (sunken cheeks/eyes). Unable to assess bed weight, bed did not have weights, RD to obtain weight changes by follow up. Current Diet Order/Nutrition Support: Puree, NTL, Ensure TID, Rick BID x 4 days Pertinent Labs: (01/17/23) Hgb 11.8L, Hct 35.2L, K 3.1L, BUN 29H, Creat 0.92WNL, Gluc 106H (01/14/23) Na 143 WNL, K+ 3.3 L, BUN 31H, Alb 2.1L, BG 106 H Height (Feet) 5 feet Height (Inches) 10.00 inches Weight (Pounds) 163 pounds (Stable since 12/30) Patient Weight 73.936 kg Body Mass Index 23.39 kg/m2 Skin Integrity Comment: Bib: 14 Wounds: dry scab on R arm; skin tear and erythema on posterior buttocks Edema: bilat hand 4+ pitting; bilat. Foot 2+ pitting Current % PO Poor, avg 33% x 6 meals Estimated Energy Expenditure (kcals/day) 5321-7896 (25-30 kcal/kg CBW [74kg] d/t sepsis, GERIAT maintenance) Estimated Protein Required (g/day) 74-104 (1-1.4 g/kg CBW d/t sepsis, ENDER [seemingly improving] GERIAT maintenance) Estimated Fluid Required (l/day) Refer to MD (CHF) Problem/Etiology/Signs/Symptoms * Inadequate oral intake R/T suspected lack of appetite AEB suboptimal PO intakes (*ongoing). * Swallowing/chewing difficulty R/T respiratory failure/aspiration precautions AEB requiring texture modification per CLIENT PROJECT COORDINATOR (ongoing) Expected Outcomes/Goals * Monitor appetite and PO intakes w/ goal of pt meeting >75% of estimated nutritional needs, nutrition-related labs trending WNL, skin integrity w/ wt. Maintenance. Dietitian Recommendations * Consider appetite stimulant (ANNAMARIE Porter to communicate with MD) * RD to obtain weight by f/u; if PO intakes do not improve within 1-3 days, consider other nutrition support alternatives. * Continue Puree, NTL, Ensure TID, Rick BID (Supplements provide 1230 kcals and 65 g PRO per day. * Encourage good PO intakes & RD to obtain most recent weights Follow Up High Risk: F/U in 2-3 days
[2023-01-17 16:00] VITALS: BP_SYST 145
--- NOTE | 2023-01-17 19:34 | NUR ---
CLOSING NOTES: PT IN BED WATCHING TV. PT WAS GIVEN BED BATH AND LINENS CHANGED. SENA CATH DRAINING TO GRAVITY YELLOW URINE AND BEEN EMPTIED. NO S/S OF DISTRESS OR PAIN REPORTED. BREATHING IS EVEN AND UNLABORED ON RA 93%. ALL NEEDS MET AT THIS TIME ,SAFETY CHECKS MADE AND CALL LIGHT WITHIN REACH. WILL ENDORSE TO SPECIAL EVENTS FUNDRAISER NURSE.
[2023-01-17 20:00] VITALS: BP_SYST 133
--- NOTE | 2023-01-17 20:10 | NUR ---
asked dr christopher for dvt prophylactic. he ordered lovenox. but i remembered the patient got hep sodium 5000 units in the morning. lovenox discontinued.
[2023-01-17] MEDS: MIRTAZAPINE 15 MG TABLET PO SCH (22:29)
[2023-01-18 00:21] VITALS: BP_SYST 149
[2023-01-18] MEDS: IPRATROPIUM/ALBUTEROL SULFATE 3 ML AMPUL.NEB (DUONEB) INH SCH ×4 (03:53→20:09)
--- NOTE | 2023-01-18 06:45 | NUR ---
Mr Mchugh has been assessed as indicted. He remains pleasantly confused. He is alert to self and very [place]. He has made no noted attempts to void with no assistance. He denies chest pain. Has no SOB. and is in controlled Afib on tele. He is presently resting quietly with no s/s of distress or discomfort
--- NOTE | 2023-01-18 07:30 | NUR ---
OPENING NOTES: RECEIVED BEDSIDE SBAR, NO S/S OF ANY DISTRESS, PATIENT SLEEPING IN BED WITH EYES CLOSED, NON LABOR BREATHING, IV INTACT BED AT LOW AND LOCKED POSITION, CALL LIGHT IN REACH, ALL SAFETY CHECKS DONE AND WILL DO THOUGHT THE DAY, WILL CONT TO MONITOR PATIENT
--- NOTE | 2023-01-18 07:30 | NUR ---
Handoff has been given to Tatyana
--- NOTE | 2023-01-18 08:15 | NUR ---
CM: Updated clinicals and order to dc to snf or transfer back to [facility] facility to claudia Hummel at [facility]. The request sent since 01/11 , the pt is stable for transfer. It had been 1 week waiting for the response from [facility]. I requested Estephanie to expedite the transfer [facility] if unable to find sn[facility] for the patient. Addition clinicals and PT notes faxed to Estephanie today. Dr Chakraborty 's contact info provided as well. Estephanie will arrange the peer to peer. Dr Chakraborty made aware.
[2023-01-18 08:37] LABS: BASOPHILS # (AUTO) 0.1 K/uL (0.0-0.2); BASOPHILS % (AUTO) 0.9 % (0.0-2.0); EOSINOPHILS # (AUTO) 0.1 K/uL (0.0-0.4); HEMATOCRIT 39.6 % (36-54); LYMPHOCYTES # (AUTO) 1.1 K/uL (1.0-5.5); LYMPHOCYTES % (AUTO) 12.5 % (20.5-51.5); MEAN CORPUSCULAR HEMOGLOBIN 31 pg (27-31); MEAN CORPUSCULAR HGB CONC 33 % (32-36); MEAN CORPUSCULAR VOLUME 94 fL (79.0-98.0); MONOCYTES # (AUTO) 0.8 K/uL (0.0-1.0); MONOCYTES % (AUTO) 8.7 % (1.7-9.3); NEUTROPHILS # (AUTO) 6.7 K/uL (1.8-7.7); NEUTROPHILS % (AUTO) 76.9 % (40.0-70.0); PLATELET COUNT (AUTO) 294 K/uL (130-430); RED BLOOD CELL COUNT(AUTO) 4.22 MIL/uL (4.2-6.2); RED CELL DISTRIBUTION WIDTH 18.9 % (9.0-15.0); WHITE BLOOD COUNT (AUTO) 8.7 K/uL (4.8-10.8)
[2023-01-18 08:47] LABS: ANION GAP 4 (5-15); CALCIUM 9.1 mg/dL (8.4-11.0); CHLORIDE 104 mmol/L (98-107); CREATININE 0.91 mg/dL (0.55-1.30); GLUCOSE 110 mg/dL (70-99); UREA NITROGEN, BLOOD 24 mg/dL (8-21)
[2023-01-18] MEDS ORDERED: ENOXAPARIN SODIUM 30 MG/0.3 ML SYRINGE SUBCUT SCH (09:00)
[2023-01-18] MEDS: THEOPHYLLINE ANHYDROUS 200 MG CAP.ER.24H PO SCH ×4 (09:28→22:09)
[2023-01-18] MEDS: HEPARIN SODIUM,PORCINE 5,000 UNITS/ML VIAL SUBCUT SCH ×2 (09:30→22:11)
[2023-01-18] MEDS: FUROSEMIDE 20 MG/2 ML VIAL IVP SCH ×2 (10:17→22:10)
[2023-01-18 13:02] VITALS: BP_SYST 145
[2023-01-18 17:32] VITALS: BP_SYST 88
[2023-01-18 17:35] VITALS: BP_SYST 88
--- NOTE | 2023-01-18 18:27 | NUR ---
CLOSING NOTES: PATIENT REMAINED STABLE TODAY, NO S/S OF ANY DISTRESS, NON LABOR BREATHING, ALL SAFETY CHECKS DONE THOUGHT THE DAY IV INTACT, BED AT LOW AND LOCKED POSITION CALL LIGHT IN REACH, WILL GIVE PM SHIFT NURSE BEDSIDE SBAR,
[2023-01-18] MEDS: MIRTAZAPINE 15 MG TABLET PO SCH ×2 (21:00→22:10)
[2023-01-18 23:03] VITALS: BP_SYST 120
[2023-01-18 23:17] VITALS: BP_SYST 120
--- NOTE | 2023-01-18 23:35 | NUR ---
Mr Mchugh is being DC to [facility]. he will be admitted to room 506. Report has been called to Dmitriy. He was transported by [facility] [address] driven by Russell and patient care by Zeeshan. His Son Valeriano is aware and compliant with the plan to DC to [place].
== END 2023-01-18 23:32 | disposition short-term general hospital (02) | DRG 870 ==
LOC: SED 16:33 → SIC 19:40 → STU 01-11 11:34
PROVIDERS: ADMIT General Practice; ATTEND General Practice
PROC: 5A1955Z Respiratory Ventilation, Greater than 96 Consecutive Hours (ICD-10-PCS; principal; 2022-12-28)
PROC: 02HV33Z Insertion of Infusion Device into Superior Vena Cava, Percutaneous Approach (ICD-10-PCS; 2022-12-28)
PROC: B548ZZA Ultrasonography of Superior Vena Cava, Guidance (ICD-10-PCS; 2022-12-28)
PROC: 0BH17EZ Insertion of Endotracheal Airway into Trachea, Via Natural or Artificial Opening (ICD-10-PCS; 2022-12-28)
PROC: 5A0955A Assistance with Respiratory Ventilation, Greater than 96 Consecutive Hours, High Flow/Velocity Cannula (ICD-10-PCS; 2023-01-05)
DX: A41.9 Sepsis, unspecified organism (principal); J96.21 Acute and chronic respiratory failure with hypoxia; I21.A1 Myocardial infarction type 2; J69.0 Pneumonitis due to inhalation of food and vomit; N17.0 Acute kidney failure with tubular necrosis; R65.21 Severe sepsis with septic shock; G93.41 Metabolic encephalopathy; I50.43 Acute on chronic combined systolic (congestive) and diastolic (congestive) heart failure; E43 Unspecified severe protein-calorie malnutrition; K72.00 Acute and subacute hepatic failure without coma; N39.0 Urinary tract infection, site not specified; J44.1 Chronic obstructive pulmonary disease with (acute) exacerbation; B15.9 Hepatitis A without hepatic coma; B19.10 Unspecified viral hepatitis B without hepatic coma; I25.10 Atherosclerotic heart disease of native coronary artery without angina pectoris; I25.5 Ischemic cardiomyopathy; I48.91 Unspecified atrial fibrillation; R74.01 Elevation of levels of liver transaminase levels; E78.5 Hyperlipidemia, unspecified; E87.5 Hyperkalemia; B19.20 Unspecified viral hepatitis C without hepatic coma; I11.0 Hypertensive heart disease with heart failure; K74.60 Unspecified cirrhosis of liver; Z20.822 Contact with and (suspected) exposure to COVID-19; K71.9 Toxic liver disease, unspecified; Z68.23 Body mass index [BMI] 23.0-23.9, adult; Z79.1 Long term (current) use of non-steroidal anti-inflammatories (NSAID); Z79.899 Other long term (current) drug therapy; Z95.1 Presence of aortocoronary bypass graft
CPT/HCPCS: 36415; 36600; 71045; 76604; 76700-TC; 80048; 80053; 80061; 80074; 80076; 80307; 81000; 82009; 82140; 82550; 82553; 82803-TC; 83037; 83605; 83735; 83880; 84100; 84484; 85025; 85610-TC; 85730-TC; 86140; 86803; 87040; 87070-TC; 87081; 87086; 87101; 87205-TC; 92610-GN; 93005; 93306; 94002; 94003; 94640; 94760; 96374; 96375; 97110-GP; 97112-GP; 97530-GP; 99291; 99292; G0378; G0480; G0481; G0482; J0696; J1265; J1644; J1940; J2270; J2405; J2543; J2704; J3010; J3370; J3480; J3490; J7050; J7060